=== PATIENT | male | born 1950 | race Caucasian/White ===

== ENCOUNTER 2021-01-01 16:13 | Emergency (ER) | payer OTHER, SELFPAY ==
--- NOTE | ~2021-01-01 | XR_ITS ---
EXAMINATION: XR chest 2V EXAM DATE: 01/01/2021 16:50 INDICATION: Chest pain. COPD. TECHNIQUE: Frontal and lateral projections of the chest obtained and reviewed. Comparison is made to prior examination from 02/20/2019. FINDINGS: No confluent consolidation, pneumothorax or pleural effusion suspected. Cardiomediastinal s ilhouette is normal. Thoracolumbar Dunbar rods. Severe upper thoracic dextroscoliosis, moderate l ower thoracic levoscoliosis. There is mid thoracic kyphosis. Patient has diffuse idiopathic skeletal hyperostosis (DISH). Chronic hyperinflation. IMPRESSION: 1. No acute cardiopulmonary findings. Reviewed, dictated and finalized at location A. ER GROWER
--- NOTE | 2021-01-01 16:13 | ECG_ITS ---
Measurements Intervals [place] Rate: 73 P: 54 TX: 179 QRS: 24 QRSD: 86 T: 35 QT: 349 QTc: 385 Interpretive Statements SINUS RHYTHM LOW QRS VOLTAGE IN PRECORDIAL LEADS BASELINE ARTIFACT- I, II, III, AVR, AVL, AVF, V3-V5 BORDERLINE ECG Electronically Signed On 01-01-2021 16:22:39 SMALL ANIMAL CARETAKER by Edy Vogel D.O.
[2021-01-01 16:25] VITALS: BP 122/68; PULSE 73; RESP 16; TEMP 36.1; O2SAT 96
[2021-01-01 16:37] LABS: Basophils Absolute Auto 0.1 K/mm3 (0.0-0.1); Basophils Percent Auto 0.7 % (0.2-1.2); Eosinophils Absolute Auto 0.3 K/mm3 (0-0.3); Eosinophils Percent Auto 2.8 % (0-4.4); Hemoglobin 14.8 g/dL (14.0-18.0); Immature Granulocyte Absolute 0.03 K/mm3 (0.00-0.031); Immature Granulocyte Percent A 0.3 % (0-0.5); Lymphocytes Absolute Auto 2.13 K/mm3 (0.9-3.2); Lymphocytes Percent Auto 22.3 % (18.3-44.2); Mean Corpuscular HGB Conc 32.2 g/dl (32-36); Mean Corpuscular Hemoglobin 31.2 pg (26-34); Mean Corpuscular Volume 96.8 fl (80-100); Mean Platelet Volume 10.3 fl (7.4-10.4); Monocytes Absolute Auto 0.7 K/mm3 (0.1-0.6); Monocytes Percent Auto 7.6 % (2.6-8.5); Neutrophils Absolute Auto 6.3 K/mm3 (1.3-6.7); Neutrophils Percent Auto 66.3 % (45.5-73.1); Platelet Count Result 239 k/mm3 (150-375); Red Blood Count 4.75 M/mm3 (4.6-6.20); Red Cell Distribution Width 13.7 % (11.5-14.5); White Blood Count 9.6 K/mm3 (4.5-10.0)
[2021-01-01 16:50] LABS: Anion Gap 8 mmol/L (8-16); Blood Urea Nitrogen 13 mg/dL (9-20); Carbon Dioxide 25 mmol/L (22-30); Chloride 105 mmol/L (98-107); Estimated CRCL calculation 91 ml/min; Estimated Glomerular Filt Rate > 60; Glucose 111 mg/dL (65-110); Sodium 138 mmol/L (137-145)
[2021-01-01 17:02] LABS: Troponin I < 0.012 ng/mL (0.000-0.034)
[2021-01-01 17:24] VITALS: BP 127/74; PULSE 65; RESP 16; O2SAT 96
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
[2021-01-01] MEDS: ASPIRIN 81 MG CHEWABLE TABLET 324 MG PO (17:25)
[2021-01-01 18:14] LABS: Prothrombin Time 13.2 Seconds (11.1-14.7)
[2021-01-01 18:15] LABS: Partial Thromboplastin Time 29.3 SECONDS (22.3-36.8)
[2021-01-01 19:47] LABS: Troponin I < 0.012 ng/mL (0.000-0.034)
[2021-01-01 19:56] VITALS: BP 113/73; PULSE 64; RESP 14; O2SAT 97
[2021-01-01 20:52] VITALS: BP 123/71; PULSE 65; RESP 18; O2SAT 96
== END 2021-01-01 20:57 | disposition home or self-care (01) ==
PROVIDERS: Emergency Provider Emergency Medicine; PCP Family Medicine
DX: R07.89 Other chest pain (principal); J44.9 Chronic obstructive pulmonary disease, unspecified; I25.10 Atherosclerotic heart disease of native coronary artery without angina pectoris; I10 Essential (primary) hypertension; Z79.82 Long term (current) use of aspirin; Z87.891 Personal history of nicotine dependence
CPT/HCPCS: 36415; 71046; 80048; 84484; 85025; 85610; 85730; 93005; 99284; A9270

== ENCOUNTER 2021-03-30 11:30 | Observation (INO) | payer OTHER, SELFPAY ==
[2021-03-30] VITALS (7 sets, daily range): BP systolic 125–130; BP diastolic 69–71; PULSE 90–99; RESP 16–20; TEMP 36.3–37.1; O2SAT 94–100
--- NOTE | ~2021-03-30 | XR_ITS ---
EXAMINATION: XR chest 1V DATE: 03/30/2021 13:12 INDICATION: Cough. TECHNIQUE: A single frontal view of the chest was obtained. COMPARISON: Chest single view 01/01/2021, thoracic spine CT 03/30/2021 FINDINGS: There are airspace opacities in left lower lobe, consistent with pneumonia. There is mild a telectasis at right lung base. No pleural effusion or pneumothorax. The heart size is normal. There a re spine fixation rods. IMPRESSION: 1. Left lower lobe pneumonia. Reviewed, dictated and finalized at location E. E SCIENTIST
--- NOTE | ~2021-03-30 | CT_ITS ---
EXAMINATION: CT thoracic lumbar wo con DATE: 03/30/2021 13:07 INDICATION: Back pain. TECHNIQUE: Computed tomography (CT) of the thoracic and lumbar spine was performed without intravenou s contrast. Automated exposure control and iterative reconstruction technique were employed. The dose -length product was 1986.60 mGy-cm. COMPARISON: None FINDINGS: CT THORACIC SPINE: There is mild atelectasis in right lung. There are airspace and groundglass opacit ies in left lung lower lobe with volume loss. No pleural effusion. There is 78 degrees dextroscoliosi s of thoracic spine. There is kyphosis of thoracic spine. There is mild chronic anterior wedging of T 5-T9 vertebral bodies. There is severe cervical spondylosis. There is mildly decreased disc height at T2-T3 and moderately decreased disc height from T3-T4 through T7-T8. There is severely decreased dis c height at T8-T9. There are bridging endplate osteophytes from T5 to L4. There is ankylosis of the f acet joints from T5-T6 to the lumbar spine. There are fixation rods with laminar hooks between T8 and S1. There is multilevel level mild neural foraminal stenosis. CT LUMBAR SPINE: There is 4 degrees levoscoliosis of thoracic lumbar spine. Vertebral body heights ar e normal. S1 is a transitional segment. Right anterior and posterior fusion from the thoracic spine L 4 with bridging endplate osteophytes, ankylosis of the facet joints, and fusion of the spinous proces ses. There is moderately decreased disc height at L4-L5. There is severely decreased disc height at L 5-S1. There is ankylosis of the facet joints at L5-S1. The following disc levels are specifically dis cussed: L4-L5: The disc is bulging. There is severe bilateral facet joint osteoarthritis. There is mild bilat eral neural foraminal stenosis. There is mild central canal stenosis. L5-S1: The disc does not extend beyond the endplate margin. There is mild bilateral facet joint hyper trophy. There is mild left neural foraminal stenosis. There is no central canal stenosis. IMPRESSION: 1. No fracture. 2. Thoracic dextroscoliosis and kyphosis and thoracolumbar levoscoliosis. 3. Anteroposterior fusion from T5 to L4 and posterior fusion at L5-S1. 4. Moderate spondylosis at L4-L5. 5. Airspace and groundglass opacities in left lung lower lobe with volume loss, likely a combination of atelectasis and pneumonia. Reviewed, dictated and finalized at location E. ONAL EDUCATION COORDINATOR
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
[2021-03-30] MEDS: traMADol HCL (*CRX) 50 MG TABLET PO (12:47)
[2021-03-30 12:50] LABS: Basophils Percent Auto 0.3 % (0.2-1.2); Eosinophils Absolute Auto 0.2 K/mm3 (0-0.3); Eosinophils Percent Auto 1.3 % (0-4.4); Hematocrit 44.5 % (42.0-52.0); Hemoglobin 14.2 g/dL (14.0-18.0); Immature Granulocyte Absolute 0.09 K/mm3 (0.00-0.031); Immature Granulocyte Percent A 0.7 % (0-0.5); Lymphocytes Absolute Auto 1.49 K/mm3 (0.9-3.2); Lymphocytes Percent Auto 11.4 % (18.3-44.2); Mean Corpuscular HGB Conc 31.9 g/dl (32-36); Mean Corpuscular Hemoglobin 30.5 pg (26-34); Mean Corpuscular Volume 95.5 fl (80-100); Mean Platelet Volume 9.8 fl (7.4-10.4); Monocytes Percent Auto 7.4 % (2.6-8.5); Neutrophils Absolute Auto 10.3 K/mm3 (1.3-6.7); Neutrophils Percent Auto 78.9 % (45.5-73.1); Platelet Count Result 280 k/mm3 (150-375); Red Blood Count 4.66 M/mm3 (4.6-6.20); Red Cell Distribution Width 13.2 % (11.5-14.5)
[2021-03-30 13:03] LABS: Alanine Aminotransferase 24 U/L (4-50); Alkaline Phosphatase 77 U/L (38-126); Anion Gap 6 mmol/L (8-16); Aspartate Amino Transferase 31 U/L (17-59); Bilirubin,Total 0.7 mg/dL (0.2-1.3); Blood Urea Nitrogen 11 mg/dL (9-20); Calcium 8.7 mg/dL (8.4-10.2); Carbon Dioxide 25 mmol/L (22-30); Chloride 105 mmol/L (98-107); Estimated CRCL calculation 90 ml/min; Estimated Glomerular Filt Rate > 60; Glucose 113 mg/dL (65-110); Potassium 4.2 mmol/L (3.4-5.0); Sodium 136 mmol/L (137-145)
[2021-03-30 14:10] LABS: Add Urine Microscopic? NO; Appearance Urine Clear (Clear); Bilirubin Urine Negative (Negative); Blood Urine Negative (Negative); Color Urine Yellow (Yellow); Glucose Urine UA Negative (Negative); Ketones Urine Negative (Negative); Leukocyte Esterase Ur Negative LEU/UL (Negative); Nitrate Urine Negative (Negative); Protein Urine Negative (Negative); Specific Grav Ur 1.021 (1.001-1.035); Urobilinogen Urine Negative mg/dL (<2.0)
[2021-03-30 15:38] LABS: SARS-CoV-2 RNA PCR Positive
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
[2021-03-30] MEDS: ACETAMINOPHEN 500 MG TABLET 1000 MG PO (18:26)
--- NOTE | 2021-03-30 19:50 | ADMGEN ---
This patient, Dov Marcial, was admitted to 3 [facility] Surg Room 310-01. Patient/family oriented to hospital policies and general routines including ID bracelet, bed and alarms, visiting hours, pain management, procedures, bathroom and other care routines, personal items, smoking policy, room service/diet, and visiting hours. Information on how to activate the Rapid Response Team has been discussed. Patient/Family are encouraged to report perceived risks to care and to ask questions if they do not understand what they are told or what they should do.
[2021-03-30] MEDS: ALBUTEROL SULFATE NEB 2.5 MG/0.5 ML INH INHALATION (21:38)
[2021-03-30] MEDS: IPRATROPIUM BR 0.02% INH SOLN 0.5 MG/2.5 ML VIAL INHALATION (21:38)
[2021-03-30] MEDS: guaiFENesin 12 HR 600 MG TABCR PO (23:40)
[2021-03-30] MEDS: METOPROLOL TARTRATE 50 MG TAB PO (23:41)
[2021-03-30] MEDS: LORazepam (*CRX) 1 MG TABLET PO (23:41)
[2021-03-31] VITALS (10 sets, daily range): BP systolic 109–143; BP diastolic 62–81; PULSE 72–101; RESP 16–18; TEMP 36.2–36.9; O2SAT 92–98
[2021-03-31 06:26] LABS: Hematocrit 41.7 % (42.0-52.0); Hemoglobin 13.9 g/dL (14.0-18.0); Mean Corpuscular HGB Conc 33.3 g/dl (32-36); Mean Corpuscular Volume 93.1 fl (80-100); Mean Platelet Volume 9.6 fl (7.4-10.4); Platelet Count Result 285 k/mm3 (150-375); Red Blood Count 4.48 M/mm3 (4.6-6.20); Red Cell Distribution Width 12.9 % (11.5-14.5); White Blood Count 10.8 K/mm3 (4.5-10.0)
[2021-03-31 06:45] LABS: Anion Gap 7 mmol/L (8-16); Blood Urea Nitrogen 9 mg/dL (9-20); CRP 5.8 mg/dL (<1.0); Calcium 8.6 mg/dL (8.4-10.2); Carbon Dioxide 24 mmol/L (22-30); Chloride 105 mmol/L (98-107); Estimated CRCL calculation 90 ml/min; Estimated Glomerular Filt Rate > 60; Glucose 86 mg/dL (65-110); Lactate Dehydrogenase 319 U/L (313-618); Magnesium 2.1 mg/dL (1.6-2.3); Sodium 136 mmol/L (137-145)
[2021-03-31] MEDS: ASPIRIN 81 MG ENTERIC TABLET PO (07:54)
[2021-03-31] MEDS: METOPROLOL TARTRATE 50 MG TAB PO ×2 (07:54→20:10)
[2021-03-31] MEDS: guaiFENesin 12 HR 600 MG TABCR PO ×2 (07:54→20:10)
[2021-03-31] MEDS: ATORVASTATIN 40 MG TABLET PO (07:54)
[2021-03-31] MEDS: ENOXAPARIN 40 MG/0.4 ML SYRINGE SUB-Q (07:54)
[2021-03-31 07:56] LABS: Procalcitonin 0.1 ng/mL
[2021-03-31] MEDS: FLUTICASONE PROP 110 MCG INHALER 12 GM (*SP) 2 PUFF INHALATION (08:24)
--- NOTE | 2021-03-31 10:34 | PM.IMPN ---
Progress Note: A&P Assessment and Plan (1) Left lower lobe pneumonia: Qualifiers: Pneumonia type: due to unspecified organism Qualified Code(s): J18.9 - Pneumonia, unspecified organism Code(s): J18.9 - Pneumonia, unspecified organism Status: Acute Assessment and Plan: Though positive for COVID this pneumonia seems more suspicious for bacterial pneumonia and given elevated white blood cell count will Continue Levaquin. (2) Chronic obstructive pulmonary disease: Qualifiers: COPD type: COPD with acute lower respiratory infection Qualified Code(s): J44.0 - Chronic obstructive pulmonary disease with (acute) lower respiratory infection Code(s): J44.9 - Chronic obstructive pulmonary disease, unspecified Status: Acute Assessment and Plan: Given his rhonchi and pneumonia with increased dyspnea he may benefit from steroids 2/5 added dexamethasone 6mg daily and Anora Ellipta Rescue inhaler and nebulizers p.r.n. (3) COVID-19: Code(s): U07.1 - COVID-19 Status: Acute Assessment and Plan: Patient received the COVID vaccination and booster. Positive for SARS-CoV-2 by PCR 2/. He has no oxygen requirement thus is not a candidate for remdesivir or dexamethasone. (4) Right-sided back pain: Qualifiers: Back pain location: back pain in unspecified location Chronicity: chronic Qualified Code(s): M54.9 - Dorsalgia, unspecified; G89.29 - Other chronic pain Code(s): M54.9 - Dorsalgia, unspecified Status: Acute Assessment and Plan: Reproducible pain on examination, likely musculoskeletal in etiology. Acetaminophen and heating pad available as needed. Encourage early mobilization and activity. (5) Hypertension: Qualifiers: Hypertension type: unspecified Qualified Code(s): I10 - Essential (primary) hypertension Code(s): I10 - Essential (primary) hypertension Status: Acute Assessment and Plan: Blood pressures reviewed with adequate control 2 Subjective Date/time seen: 03/31/21 10:34 Interval history: Admitted for COVID-19 and LLL pneumonia. 2/5 visit. Feeling better. Short of breath with exertion only. Taste and smell intact. Had mild diarrhea. Appetite remains good. Denied chest pain or abdominal pain. Denied dysuria. Denied abnormal bleeding. Review of Systems Review of Systems: All systems reviewed & are unremarkable except as noted in HPI and below Exam Narrative: HEENT: PERRL, sclerae nonicteric, pharyngeal mucosa pink and intact NECK: No JVD CHEST: Mildly tachypneic. Diffuse inspiratory and expiratory rhonchi. Few LLL crackles. HEART: NL S1/S2, regular, no murmur ABDOMEN: BS+, soft, nontender, no mass, no bruits EXTREMITIES: No cyanosis, edema, or clubbing NEUROLOGIC: CN intact and symmetric to inspection. MUSCULOSKELETAL: Tone and strength symmetric. PSYCH: Alert. Oriented to person, place, and time. Objective Data Vital Signs Vital Signs: Vital Signs - 24 hr 03/30/21 11:32 03/30/21 15:33 03/30/21 15:45 Temperature 97.3 F L Pulse Rate 90 Respiratory Rate 18 Blood Pressure 130/69 Pulse Oximetry 100 97 97 03/30/21 16:54 03/30/21 20:00 03/30/21 21:40 Temperature 98.8 F Pulse Rate 99 99 98 Respiratory Rate 16 20 Blood Pressure 125/71 Pulse Oximetry 95 94 03/30/21 23:41 03/31/21 00:00 03/31/21 04:00 Temperature 98.3 F 98.3 F Pulse Rate 90 100 88 Respiratory Rate 18 16 Blood Pressure 128/81 112/69 Pulse Oximetry 95 95 03/31/21 07:54 03/31/21 08:00 03/31/21 08:28 Temperature 97.9 F Pulse Rate 80 95 72 Respiratory Rate 16 18 Blood Pressure 143/73 H Pulse Oximetry 98 95 Intake/Output Intake/Output: Intake & Output 03/28/21 03/29/21 03/30/21 03/31/21 23:59 23:59 23:59 23:59 Intake Total 150 940 Balance 150 940 Meds/Results Medications: Active Medications Generic Name Dose Route Start
[2021-03-31] MEDS: DEXAMETHASONE 2 MG TABLET 6 MG PO (17:03)
[2021-03-31] MEDS: LORazepam (*CRX) 1 MG TABLET PO (20:10)
[2021-04-01] VITALS: BP 118/56; PULSE 74; RESP 18; TEMP 37.1; O2SAT 100
[2021-04-01 04:00] VITALS: BP 113/64; PULSE 92; RESP 18; TEMP 35.9; O2SAT 93
[2021-04-01] MEDS: DEXAMETHASONE 2 MG TABLET 6 MG PO (07:48)
[2021-04-01 07:59] VITALS: PULSE 90
[2021-04-01] MEDS: ASPIRIN 81 MG ENTERIC TABLET PO (07:59)
[2021-04-01] MEDS: METOPROLOL TARTRATE 50 MG TAB PO (07:59)
[2021-04-01 08:00] VITALS: BP 120/80; PULSE 112; RESP 14; TEMP 36.2; O2SAT 96; O2SAT 97
[2021-04-01] MEDS: ATORVASTATIN 40 MG TABLET PO (08:00)
[2021-04-01] MEDS: ENOXAPARIN 40 MG/0.4 ML SYRINGE SUB-Q (08:00)
[2021-04-01] MEDS: guaiFENesin 12 HR 600 MG TABCR PO (08:00)
[2021-04-01] MEDS: UMECLIDINIUM/VILANTEROL 62.5-25 MCG ELLIPTA 1 PUFF INHALATION (08:14)
[2021-04-01] MEDS: FLUTICASONE PROP 110 MCG INHALER 12 GM (*SP) 2 PUFF INHALATION (08:15)
[2021-04-01 08:16] VITALS: PULSE 112; O2SAT 96
--- NOTE | 2021-04-01 09:57 | PM.IMPN ---
Subjective Date/time seen: 04/01/21 09:57 Objective Data Vital Signs Vital Signs: Vital Signs - 24 hr 03/31/21 12:00 03/31/21 15:51 03/31/21 20:00 Temperature 98.2 F 98.5 F 97.1 F L Pulse Rate 77 91 101 H Respiratory Rate 16 16 18 Blood Pressure 113/65 109/62 116/66 Pulse Oximetry 93 93 92 03/31/21 20:10 03/31/21 23:32 04/01/21 00:00 Temperature 98.7 F Pulse Rate 78 78 74 Respiratory Rate 18 Blood Pressure 118/56 L Pulse Oximetry 93 100 04/01/21 04:00 04/01/21 07:59 04/01/21 08:00 Temperature 96.6 F L 97.2 F L Pulse Rate 92 90 112 H Respiratory Rate 18 14 Blood Pressure 113/64 120/80 Pulse Oximetry 93 97 04/01/21 08:16 Temperature Pulse Rate 112 H Respiratory Rate Blood Pressure Pulse Oximetry 96 Intake/Output Intake/Output: Intake & Output 03/29/21 03/30/21 03/31/21 04/01/21 23:59 23:59 23:59 23:59 Intake Total 150 2070 780 Output Total 500 Balance 150 2070 280 Meds/Results Medications: Active Medications Generic Name Dose Route Start Last Admin Trade Name Freq PRN Reason Stop Dose Admin Acetaminophen 650 mg 03/30/21 20:23 Acetaminophen 325 Mg Tablet PO Q6H PRN Mild Pain (1-3) or Fever Albuterol 2.5 mg 03/30/21 21:27 03/30/21 21:38 Albuterol Sulfate Neb 2.5 Mg/0.5 Ml Inh INHALATION 04/29/21 21:26 2.5 mg Q4-6H PRN Administration Shortness Of Breath Aspirin 81 mg 03/31/21 09:00 04/01/21 07:59 Aspirin 81 Mg Enteric Tablet PO 81 mg DAILY JIMENEZ Administration Atorvastatin Calcium 40 mg 03/31/21 09:00 04/01/21 08:00 Atorvastatin 40 Mg Tablet PO 40 mg DAILY JIMENEZ Administration Dexamethasone 6 mg 03/31/21 16:20 04/01/21 07:48 Dexamethasone 2 Mg Tablet PO 04/09/21 08:01 6 mg DAILY@0800 JIMENEZ Administration Docusate Sodium 100 mg 03/30/21 21:15 Docusate Sodium 100 Mg Capsule PO DAILY PRN Constipation Enoxaparin Sodium 40 mg 03/31/21 09:00 04/01/21 08:00 Enoxaparin 40 Mg/0.4 Ml Syringe SUB-Q 40 mg DAILY JIMENEZ Administration Fluticasone Propionate 2 puff 03/31/21 08:00 04/01/21 08:16 Fluticasone Prop 110 Mcg Inhaler 12 Gm (*Sp) INHALATION Not Given Q12HRT [facility] Guaifenesin 600 mg 03/30/21 21:00 04/01/21 08:00 Guaifenesin 12 Hr 600 Mg Tabcr PO 600 mg Q12HR JIMENEZ Administration Levofloxacin/Dextrose 750 mg in 150 mls @ 100 mls/hr 03/31/21 15:00 03/31/21 16:06 Levaquin 750 Mg/D5w 150 Ml IVPB Infused Q24H JIMENEZ Infusion Ipratropium [place] 0.5 mg 03/30/21 21:15 03/30/21 21:38 Ipratropium Br 0.02% Inh Soln 0.5 Mg/2.5 Ml Vial INHALATION 0.5 mg Q4-6H PRN Administration Shortness Of Breath Lorazepam 1 mg 03/30/21 21:00 03/31/21 20:10 Lorazepam (*Crx) 1 Mg Tablet PO 1 mg HS JIMENEZ Administration Metoprolol Tartrate 50 mg 03/30/21 21:25 04/01/21 07:59 Metoprolol Tartrate 50 Mg Tab PO 50 mg Q12HR JIMENEZ Administration Umeclidinium/Vilanterol 1 puff 04/01/21 08:00 04/01/21 08:14 Umeclidinium/Vilanterol 62.5-25 Mcg Ellipta INHALATION 1 puff DAILYRT JIMENEZ Administration Radiology Results: ITS Impressions Thoracic/Lumbar Spine CT 03/30/21 13:23 IMPRESSION: 1. No fracture. 2. Thoracic dextroscoliosis and kyphosis and thoracolumbar levoscoliosis. 3. Anteroposterior fusion from T5 to L4 and posterior fusion at L5-S1. 4. Moderate spondylosis at L4-L5. 5. Airspace and groundglass opacities in left lung lower lobe with volume loss, likely a combination of atelectasis and pneumonia. Chest X-Ray 03/30/21 13:39 IMPRESSION: 1. Left lower lobe pneumonia. Quality VTE Prophylaxis VTE prophylaxis: pharmacologic ordered
--- NOTE | 2021-04-01 10:19 | PM.DS ---
DS: Admitting Diagnosis Discharge Date Patient seen examined April 01, 2021 Admitting Diagnosis Left lower lobe pneumonia and COVID-19 DS: Discharge Diagnosis Discharge Diagnosis (1) Left lower lobe pneumonia: Qualifiers: Pneumonia type: due to unspecified organism Qualified Code(s): J18.9 - Pneumonia, unspecified organism Code(s): J18.9 - Pneumonia, unspecified organism Status: Acute Assessment and Plan: Though positive for COVID this pneumonia seems more suspicious for bacterial pneumonia and given elevated white blood cell count will Continue Levaquin. (2) Chronic obstructive pulmonary disease: Qualifiers: COPD type: COPD with acute lower respiratory infection Qualified Code(s): J44.0 - Chronic obstructive pulmonary disease with (acute) lower respiratory infection Code(s): J44.9 - Chronic obstructive pulmonary disease, unspecified Status: Acute Assessment and Plan: Given his rhonchi and pneumonia with increased dyspnea he may benefit from steroids 2/5 added dexamethasone 6mg daily and Anora Ellipta Rescue inhaler and nebulizers p.r.n. (3) COVID-19: Code(s): U07.1 - COVID-19 Status: Acute Assessment and Plan: Patient received the COVID vaccination and booster. Positive for SARS-CoV-2 by PCR 2. He has no oxygen requirement thus is not a candidate for remdesivir or dexamethasone. (4) Right-sided back pain: Qualifiers: Back pain location: back pain in unspecified location Chronicity: chronic Qualified Code(s): M54.9 - Dorsalgia, unspecified; G89.29 - Other chronic pain Code(s): M54.9 - Dorsalgia, unspecified Status: Acute Assessment and Plan: Reproducible pain on examination, likely musculoskeletal in etiology. Acetaminophen and heating pad available as needed. Encourage early mobilization and activity. (5) Hypertension: Qualifiers: Hypertension type: unspecified Qualified Code(s): I10 - Essential (primary) hypertension Code(s): I10 - Essential (primary) hypertension Status: Acute Assessment and Plan: Blood pressures reviewed with adequate control 2/ DS: Summary Hospital Course Reason for hospitalization: Dyspnea Hospital Course: Patient was admitted with dyspnea and found to be positive for COVID-19 however he had a left lower lobe pneumonia more consistent with bacterial pneumonia. He had no oxygen requirements. He was treated with levothyroxine 750 mg IV daily. He improved dramatically after the addition of dexamethasone 6 mg daily more for wheezing and bronchospasm then for COVID-19. By day of discharge his lungs were clear he was up and about without difficulty. Status at Discharge Functional status at discharge: independent ambulation Overall status at discharge: patient is progressing back to baseline Time Spent with Patient Time attestation: Total time spent providing and/or coordinating discharge services: Time spent: Greater than 30 minutes Exam Narrative: HEENT: PERRL, sclerae nonicteric, pharyngeal mucosa pink and intact NECK: No JVD CHEST: NL effort. CTA. HEART: NL S1/S2, regular, no murmur ABDOMEN: BS+, soft, nontender, no mass, no bruits EXTREMITIES: No cyanosis, edema, or clubbing NEUROLOGIC: CN intact and symmetric to inspection. MUSCULOSKELETAL: Tone and strength symmetric. PSYCH: Alert. Oriented to person, place, and time. DS: Data Data Completed and Pending Labs on day of discharge: Preliminary micro results at discharge 03/30/21 15:05 Blood Culture - Preliminary Blood 03/30/21 15:05 Blood Culture - Preliminary Blood Discharge Plan Discharge Discharging Clinician: Raza Garcia Patient Disposition: Home, Self-Care Activity: as tolerated Diet: regular Discharge Instructions: See primary care provider in one week. Patient Instructions: Antibiotic Form, COVID-19 (Coronavirus Disease 201
== END 2021-04-01 11:20 | disposition home or self-care (01) ==
LOC: ANHED 15:11 → ANH3MEDSUR 04-01 10:26
PROVIDERS: Physician Assistant; Admitting Provider Internal Medicine; Emergency Provider Emergency Medicine; PCP Obstetrics & Gynecology; Visit Provider Internal Medicine
DX: U07.1 COVID-19 (principal); J18.9 Pneumonia, unspecified organism; M54.50 Low back pain, unspecified; J44.0 Chronic obstructive pulmonary disease with (acute) lower respiratory infection; J44.9 Chronic obstructive pulmonary disease, unspecified; E78.5 Hyperlipidemia, unspecified; G14 Postpolio syndrome; H26.9 Unspecified cataract; H35.30 Unspecified macular degeneration; I25.10 Atherosclerotic heart disease of native coronary artery without angina pectoris; I10 Essential (primary) hypertension; L40.9 Psoriasis, unspecified; M41.9 Scoliosis, unspecified; Z95.5 Presence of coronary angioplasty implant and graft; Z87.891 Personal history of nicotine dependence; Z79.82 Long term (current) use of aspirin; Z88.0 Allergy status to penicillin; Z87.442 Personal history of urinary calculi; Z79.899 Other long term (current) drug therapy
CPT/HCPCS: 36415; 71045; 72128; 72131; 80048; 80053; 81003; 82728; 83615; 83735; 84145; 85025; 85027; 86140; 87040; 94640; 96365; 96366; 96372; 99285; A9270; C9803; G0378; J1650; J1956; J8540; U0003; U0005

== ENCOUNTER 2021-05-02 00:18 | Day surgery (SDC) | payer OTHER, SELFPAY ==
[2021-04-20 13:10] VITALS: BMI 29.8
[2021-05-02] MEDS: LACTATED RINGERS 1,000 ML 150 ML IV CONT (07:04)
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
[2021-05-02 08:13] VITALS: BP 96/63; PULSE 102; RESP 23; O2SAT 95
[2021-05-02 08:23] VITALS: BP 117/77; PULSE 95; RESP 18; O2SAT 98
[2021-05-02 08:33] VITALS: BP 112/60; PULSE 101; RESP 24; O2SAT 98
== END 2021-05-02 08:49 | disposition home or self-care (01) ==
PROVIDERS: Visit Provider Internal Medicine Gastroenterology
PROC: 0DJD8ZZ Inspection of Lower Intestinal Tract, Via Natural or Artificial Opening Endoscopic (ICD-10-PCS; CPT 45378; principal; 2021-05-02 08:00)
DX: Z12.11 Encounter for screening for malignant neoplasm of colon (principal); D12.3 Benign neoplasm of transverse colon; K57.30 Diverticulosis of large intestine without perforation or abscess without bleeding; K64.8 Other hemorrhoids; I25.10 Atherosclerotic heart disease of native coronary artery without angina pectoris; J44.9 Chronic obstructive pulmonary disease, unspecified; I10 Essential (primary) hypertension; E78.5 Hyperlipidemia, unspecified; G14 Postpolio syndrome; L40.9 Psoriasis, unspecified; H26.9 Unspecified cataract; H35.30 Unspecified macular degeneration; Z95.5 Presence of coronary angioplasty implant and graft; Z87.891 Personal history of nicotine dependence; Z79.51 Long term (current) use of inhaled steroids; Z79.82 Long term (current) use of aspirin
CPT/HCPCS: 45385; 88305; J2704; J7120

== ENCOUNTER 2021-05-09 07:44 | Outpatient (CLI) | payer OTHER, SELFPAY ==
--- NOTE | ~2021-05-09 | XR_ITS ---
XR chest 2V 05/09/2021 08:11 Indication: Emphysema. COPD. Procedure: PA and lateral views of the chest Comparison: Comparison to multiple prior studies sequentially, with oldest reviewed study dated 10/2018. Findings: There are Dunbar rods overlying the lower thoracic and upper lumbar spine. There is acc entuated thoracic kyphosis with scoliosis. There is left basilar atelectasis/scarring, unchanged. Sta ble cardiomediastinal silhouette. No acute focal pneumonia, edema, pleural effusion or pneumothorax. Impression: 1: No acute cardiopulmonary disease. Reviewed, dictated and finalized at location B. Impression: 1: No acute cardiopulmonary disease.
== END 2021-05-09 07:45 | disposition home or self-care (01) ==
LOC: ANHIMG 07:47
DX: J44.9 Chronic obstructive pulmonary disease, unspecified (principal); Z86.16 Personal history of COVID-19
CPT/HCPCS: 71046

== ENCOUNTER 2021-07-12 13:26 | Outpatient (CLI) | payer OTHER, SELFPAY ==
--- NOTE | ~2021-07-12 | CT_ITS ---
EXAMINATION:CT lung screening DATE: 07/12/2021 14:41 INDICATION: Personal history of tobacco dependence. Smoker who quit 4 years ago with 40 pack year his tory. TECHNIQUE: Computed tomography (CT) of the chest was performed without intravenous contrast. Automate d exposure control and iterative reconstruction technique were employed. The dose-length product (DLP ) was 216.28 mGy-cm. COMPARISON: Chest CT 12/02/2018 FINDINGS: There is mild emphysema. There is mild atelectasis bilaterally. Calcified pulmonary nodules are consistent with old granulomatous disease. There is moderate atelectasis in right middle lobe an d right lower lobe. There is mild bronchiectasis in right middle lobe. There are a few chronic nodule s in right lung measuring up to 4 mm. No pleural effusion. The heart size is normal. There are whitlock ry artery calcifications. There is a small pericardial effusion. There is dextroscoliosis of upper th oracic spine and levoscoliosis of lower thoracic spine. There is kyphosis of thoracic spine. There ar e rods in the posterior spine. IMPRESSION: 1. Lung-RADS category 2: Benign appearance or behavior. Continue annual screening with noncontrast lo w-dose chest CT in 12 months. Reviewed, dictated and finalized at location A. IMPRESSION: 1. Lung-RADS category 2: Benign appearance or behavior. Continue annual screeni ng with noncontrast low-dose chest CT in 12 months.
--- NOTE | 2021-07-13 11:54 | WPDPFTINT ---
PFT Procedure Performed PFT Procedure Performed Spirometry with Pre/Post Bronchodilator Plethysmography (Lung Vol) Diffusing Cap (DLCO) Flow Vol Loop PFT Interpretation Lung volumes were measured with the body plethysmography method. Lung volumes are unremarkable. Spirometry showed diminished expiratory flow rates and a diminished FEV1 to FVC ratio of 64%, indicative of obstructive airway disease. Following administration of a bronchodilator there was no significant increased expiratory flow rates. Lung diffusion capacity is mildly reduced at 71% predicted. The flow volume loop is consistent with mild obstructive airway disease. Impression: Mild obstructive airway disease with no response to bronchodilators on this testing. Mild reduction in lung diffusion capacity.
--- NOTE | 2021-07-13 11:57 | P.PCNSIX_ITS ---
Six Minute Walk Procedure Procedure Performed Pulmonary Stress Test (6 min walk) Six Minute Walk This 6 minute walk test was carried out with the patient breathing ambient air. Pre walk at rest, the oxyhemoglobin saturation was 93%. The patient walked over 152 m with no stops during the walk. During the walk, the ox yhemoglobin saturation remained near 90%. The perceived dyspnea at rest was 0 on the Yobany scale and increased to 4 at the end of the test. Of note, patient used cane with walk. Impression: No evidence of oxyhemoglobin desaturation on this testing.
== END 2021-07-12 13:27 | disposition home or self-care (01) ==
PROVIDERS: Visit Provider Internal Medicine Pulmonary Disease
DX: Z12.2 Encounter for screening for malignant neoplasm of respiratory organs (principal); Z87.891 Personal history of nicotine dependence; R94.2 Abnormal results of pulmonary function studies
CPT/HCPCS: 36415; 71271; 94060; 94618; 94726; 94729

== ENCOUNTER 2021-08-07 07:19 | Outpatient (CLI) | payer OTHER, SELFPAY ==
--- NOTE | ~2021-08-07 | XR_ITS ---
XR chest 2V DATE: 08/07/2021 07:37 INDICATION: Emphysema. Localized swelling bilateral lower extremities TECHNIQUE: PA and lateral views COMPARISON: 07/12/2021 CT lung screening FINDINGS: Bilateral thoracolumbar spinal rods are noted. There is prominent thoracic and lumbar scoli osis. Bilateral glenohumeral osteoarthritis. There is osteopenia. There is minimal discoid atelectasis or scarring at the lung bases. The lungs appear mildly hyperinfl ated but clear of consolidation. No pleural effusion or pulmonary vascular congestion or pneumothorax. Heart size appears within normal range. There is aortic arch calcification. IMPRESSION: Moderate bilateral hyperinflation suggesting COPD Normal heart size. Aortic calcification Prominent thoracic and lumbar scoliosis; bilateral thoracolumbar spinal rods Bilateral glenohumeral osteoarthritis Reviewed, dictated and finalized at location A.
== END 2021-08-07 07:20 | disposition home or self-care (01) ==
DX: R91.8 Other nonspecific abnormal finding of lung field (principal); M19.011 Primary osteoarthritis, right shoulder; M19.012 Primary osteoarthritis, left shoulder
CPT/HCPCS: 71046

== ENCOUNTER 2021-08-16 13:24 | Outpatient (CLI) | payer OTHER, SELFPAY ==
--- NOTE | ~2021-08-16 | US_ITS ---
EXAMINATION: US venous doppler [facility] DATE: 08/16/2021 14:14 INDICATION: Bilateral lower limb swelling TECHNIQUE: Grayscale ultrasound images without and with compression and Doppler ultrasound images of the bilateral lower extremity veins were obtained. COMPARISON: None. FINDINGS: The visualized portions of right common femoral vein, profunda (deep) femoral vein, femoral vein, pop liteal vein, posterior tibial veins, peroneal veins, gastrocnemius vein and greater saphenous vein ou tflow are patent. The visualized portions of left common femoral vein, profunda femoral vein, femoral vein, popliteal v ein, posterior tibial veins, peroneal veins, gastrocnemius vein and greater saphenous vein outflow ar e patent. IMPRESSION: 1. No deep venous thrombosis in either lower limb. Reviewed, dictated and finalized at location B.
== END 2021-08-16 13:25 | disposition home or self-care (01) ==
LOC: ANHIMG 13:26
DX: M79.89 Other specified soft tissue disorders (principal)
CPT/HCPCS: 93970

== ENCOUNTER 2021-08-17 10:48 | Outpatient (CLI) | payer OTHER, SELFPAY | END 2021-08-17 10:49 | disposition home or self-care (01) | LOC: ANHAUDIO 10:49 | PROVIDERS: Visit Provider Otolaryngology | DX: H90.3 Sensorineural hearing loss, bilateral (principal) | CPT/HCPCS: 92557; 92567 ==

== ENCOUNTER 2021-10-09 04:45 | Emergency (ER) | payer OTHER, SELFPAY ==
[2021-10-09] VITALS (7 sets, daily range): BP systolic 102–120; BP diastolic 58–67; PULSE 56–67; RESP 13–25; TEMP 36.8; O2SAT 95–99
--- NOTE | ~2021-10-09 | CT_ITS ---
EXAMINATION: CT brain wo con DATE: 10/09/2021 05:58 INDICATION: Vertigo and acute onset dizziness which worsens with movement. TECHNIQUE: Computed tomography (CT) of the head was performed without intravenous contrast. Sagittal and coronal reconstructions were performed. The mA was adjusted according to patient size. Iterative reconstruction technique was employed. The dose-length product was 681.00 mGy-cm. COMPARISON: head CT dated 10/05/2018 FINDINGS: No acute intracranial hemorrhage, acute infarction or abnormal extra axial fluid collection. Symmetri c prominence of the sulci and subarachnoid spaces overlying the convexities consistent with mild age- appropriate diffuse cerebral volume loss. Ventricles are normal and symmetric. No mass/mass effect. Mucosal thickening in the bilateral maxillary sinuses with bubbly mucus in the right maxillary sinus suggesting acute sinusitis. Occlusion of the right ostiomeatal unit. Slight thickening of the maxilla ry sinus orosco suggesting chronic sinusitis. Postoperative change of bilateral antral window procedur e. Unchanged small mucous retention cyst in the left frontal sinus. The orbits and mastoid air cells are normal. IMPRESSION: 1. No acute intracranial process. 2. Chronic sinus disease with bubbly mucus in the right maxillary sinus suggesting acute sinusitis. Reviewed, dictated and finalized at location A. IMPRESSION: 1. No acute intracranial process. 2. Chronic sinus disease with bubbly mucus in the right maxillary sinus suggest ing acute sinusitis.
[2021-10-09 05:05] LABS: Basophils Absolute Auto 0.1 K/mm3 (0.0-0.1); Basophils Percent Auto 0.9 % (0.2-1.2); Eosinophils Absolute Auto 0.4 K/mm3 (0-0.3); Eosinophils Percent Auto 4.5 % (0-4.4); Hematocrit 43.1 % (42.0-52.0); Hemoglobin 13.7 g/dL (14.0-18.0); Immature Granulocyte Absolute 0.04 K/mm3 (0.00-0.031); Immature Granulocyte Percent A 0.5 % (0-0.5); Lymphocytes Absolute Auto 1.89 K/mm3 (0.9-3.2); Lymphocytes Percent Auto 24.4 % (18.3-44.2); Mean Corpuscular HGB Conc 31.8 g/dl (32-36); Mean Corpuscular Hemoglobin 30.1 pg (26-34); Mean Corpuscular Volume 94.7 fl (80-100); Mean Platelet Volume 10.6 fl (7.4-10.4); Monocytes Absolute Auto 0.7 K/mm3 (0.1-0.6); Monocytes Percent Auto 8.4 % (2.6-8.5); Neutrophils Absolute Auto 4.7 K/mm3 (1.3-6.7); Neutrophils Percent Auto 61.3 % (45.5-73.1); Platelet Count Result 204 k/mm3 (150-375); Red Blood Count 4.55 M/mm3 (4.6-6.20); Red Cell Distribution Width 13.2 % (11.5-14.5); White Blood Count 7.7 K/mm3 (4.5-10.0)
[2021-10-09] MEDS: diazePAM INJ (*CRX) 10 MG/2 ML SYRINGE 2.5 MG IV PUSH (05:08)
[2021-10-09] MEDS: MECLIZINE HCL 25 MG TABLET PO (05:10)
[2021-10-09 05:19] LABS: Alanine Aminotransferase 21 U/L (6-50); Albumin Level 3.6 g/dL (3.5-5.1); Alkaline Phosphatase 89 U/L (38-126); Anion Gap 7 mmol/L (8-16); Aspartate Amino Transferase 27 U/L (17-59); Bilirubin,Total 0.5 mg/dL (0.2-1.3); Blood Urea Nitrogen 10 mg/dL (9-20); Calcium 8.6 mg/dL (8.4-10.2); Carbon Dioxide 28 mmol/L (22-30); Chloride 102 mmol/L (98-107); Estimated CRCL calculation 121 ml/min; Estimated Glomerular Filt Rate > 60; Glucose 109 mg/dL (65-110); Potassium 3.8 mmol/L (3.4-5.0); Sodium 137 mmol/L (137-145)
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
== END 2021-10-09 07:12 | disposition home or self-care (01) ==
PROVIDERS: Emergency Provider Emergency Medicine
DX: R42 Dizziness and giddiness (principal); I25.10 Atherosclerotic heart disease of native coronary artery without angina pectoris; J44.9 Chronic obstructive pulmonary disease, unspecified; E78.5 Hyperlipidemia, unspecified; I10 Essential (primary) hypertension; H35.30 Unspecified macular degeneration; Z87.01 Personal history of pneumonia (recurrent); Z86.010 Personal history of colon polyps; Z95.5 Presence of coronary angioplasty implant and graft; Z87.442 Personal history of urinary calculi; Z87.891 Personal history of nicotine dependence; Z79.82 Long term (current) use of aspirin
CPT/HCPCS: 36415; 70450; 80053; 85025; 96374; 99284; A9270; J3360

== ENCOUNTER 2021-10-23 09:03 | Outpatient (CLI) | payer OTHER, SELFPAY ==
--- NOTE | 2021-10-23 11:00 | NEURO_ITS ---
Impression: # This is an abnormal study due to the presence of moderate right Carpal Tunnel Syndrome and mild right ulnar neuropathy at the elbow. # Needle/EMG exam revealed neurogenic changes in Pronator Teres and Brachioradialis which can be seen in C6 radiculopathy. # Clinical correlation recommended. Nerve Conduction Studies Anti Sensory Summary Table Stim Site NR Peak (ms) P-T Amp (?V) Site1 Site2 Delta-P (ms) Dist (cm) Maurice (m/s) Right Median Anti Sensory (2-3nd Digit) Wrist 9.5 21.0 Wrist 2-3nd Digit 9.5 14.0 15 Wrist 6.6 24.7 Wrist 2-3nd Digit 9.5 14.0 15 Right Radial Anti Sensory (Base 1st Digit) Wrist 3.1 24.9 Wrist Base 1st Digit 3.1 0.0 Right Ulnar Anti Sensory (5th Digit) Wrist 3.2 5.0 Wrist 5th Digit 3.2 14.0 44 Motor Summary Table Stim Site NR Onset (ms) O-P Amp (mV) Site1 Site2 Delta-0 (ms) Dist (cm) Maurice (m/s) Right Median Motor (Abd Poll Brev) Wrist 6.7 0.5 Elbow Wrist 6.3 25.0 40 Elbow 13.0 0.8 Right Ulnar Motor (Abd Dig Minimi) Wrist 3.0 4.7 A Elbow Wrist 7.2 31.0 43 A Elbow 10.2 3.3 B Elbow Wrist 3.9 22.0 56 B Elbow 6.9 3.0 F Wave Studies NR F-Lat (ms) L-R F-Lat (ms) Right Median (Mrkrs) (Abd Poll Brev) 31.35 Right Ulnar (Mrkrs) (Abd Dig Min) 30.97 EMG Side Muscle Nerve Root Ins Act Fibs Amp Dur Recrt Comment Right 1stDorInt Ulnar C8-T1 Nml Nml Nml Nml Nml Right Ext Indicis Radial (Post Int) C7-8 Nml Nml Nml Nml Nml Right Ext Digitorum Radial (Post Int) C7-8 Nml Nml Nml Nml Nml Right BrachioRad Radial C5-6 Nml Nml Nml Nml Reduced Right PronatorTeres Median C6-7 Nml Nml Nml Nml Reduced Right Abd Poll Brev Median C8-T1 Nml Nml Nml Nml Nml MTDD
--- NOTE | 2021-10-23 11:00 | NEURO_ITS ---
Original report below was signed by Dr. Ani Goodwin on October 23, 2021 at 15:08 and has been recreated for an addendum on October 24, 2021. Impression: # This is an abnormal study due to the presence of moderate right Carpal Tunnel Syndrome. # Needle/EMG exam revealed neurogenic changes in Pronator Teres and Brachioradialis which can be seen in C6 radiculopathy. MRI cervical spine can be obtained for further evaluation. # Clinical correlation recommended. Nerve Conduction Studies Anti Sensory Summary Table Stim Site NR Peak (ms) P-T Amp (?V) Site1 Site2 Delta-P (ms) Dist (cm) Maurice (m/s) Right Median Anti Sensory (2-3nd Digit) Wrist 9.5 21.0 Wrist 2-3nd Digit 9.5 14.0 15 Wrist 6.6 24.7 Wrist 2-3nd Digit 9.5 14.0 15 Right Radial Anti Sensory (Base 1st Digit) Wrist 3.1 24.9 Wrist Base 1st Digit 3.1 0.0 Right Ulnar Anti Sensory (5th Digit) Wrist 3.2 5.0 Wrist 5th Digit 3.2 14.0 44 Motor Summary Table Stim Site NR Onset (ms) O-P Amp (mV) Site1 Site2 Delta-0 (ms) Dist (cm) Maurice (m/s) Right Median Motor (Abd Poll Brev) Wrist 6.7 0.5 Elbow Wrist 6.3 25.0 40 Elbow 13.0 0.8 Right Ulnar Motor (Abd Dig Minimi) Wrist 3.0 4.7 A Elbow Wrist 7.2 31.0 43 A Elbow 10.2 3.3 B Elbow Wrist 3.9 22.0 56 B Elbow 6.9 3.0 F Wave Studies NR F-Lat (ms) L-R F-Lat (ms) Right Median (Mrkrs) (Abd Poll Brev) 31.35 Right Ulnar (Mrkrs) (Abd Dig Min) 30.97 EMG Side Muscle Nerve Root Ins Act Fibs Amp Dur Recrt Comment Right 1stDorInt Ulnar C8-T1 Nml Nml Nml Nml Nml Right Ext Indicis Radial (Post Int) C7-8 Nml Nml Nml Nml Nml Right Ext Digitorum Radial (Post Int) C7-8 Nml Nml Nml Nml Nml Right BrachioRad Radial C5-6 Nml Nml Nml Nml Reduced Right PronatorTeres Median C6-7 Nml Nml Nml Nml Reduced Right Abd Poll Brev Median C8-T1 Nml Nml Nml Nml Nml This dictation may have been done utilizing a voice recognition system. Attempts have been made to correct errors. However, there may be uncorrected grammatical, spelling, and recognition errors present. Dictated By: Ani Goodwin MD 10/23/21 1100 Transcribed Date/Time: 10/23/21 1139 Signed By: Ani Goodwin MD 10/23/21 1508 [facility]
== END 2021-10-23 09:04 | disposition home or self-care (01) ==
PROVIDERS: Visit Provider Orthopaedic Surgery
DX: G56.01 Carpal tunnel syndrome, right upper limb (principal); R94.131 Abnormal electromyogram [EMG]
CPT/HCPCS: 95886; 95909

== ENCOUNTER 2021-12-04 08:59 | Outpatient (CLI) | payer OTHER, SELFPAY ==
--- NOTE | 2021-12-04 | ECG_ITS ---
Measurements Intervals [place] Rate: 47 P: 47 MA: 169 QRS: 19 QRSD: 89 T: 28 QT: 392 QTc: 349 Interpretive Statements SINUS BRADYCARDIA COMPARED TO ECG 01/01/2021 16:18:11 SINUS BRADYCARDIA NOW PRESENT Electronically Signed On 12-05-2021 14:28:09 CDT by Gloria Rajan M.D.
[2021-12-04 09:51] LABS: Anion Gap 4 mmol/L (8-16); Blood Urea Nitrogen 14 mg/dL (9-20); Calcium 8.5 mg/dL (8.4-10.2); Carbon Dioxide 31 mmol/L (22-30); Chloride 101 mmol/L (98-107); Estimated Glomerular Filt Rate > 60; Glucose 80 mg/dL (65-110); Sodium 136 mmol/L (137-145)
== END 2021-12-04 09:00 | disposition home or self-care (01) ==
PROVIDERS: Visit Provider Orthopaedic Surgery
DX: Z01.818 Encounter for other preprocedural examination (principal); R94.31 Abnormal electrocardiogram [ECG] [EKG]
CPT/HCPCS: 36415; 80048; 93005

== ENCOUNTER 2022-03-08 08:58 | Emergency (ER) | payer OTHER, SELFPAY ==
[2022-03-08 09:01] VITALS: BP 98/57; PULSE 74; RESP 16; TEMP 36.4; O2SAT 99
[2022-03-08 09:31] LABS: INR 1.1; Prothrombin Time 13.7 Seconds (11.1-14.7)
[2022-03-08 09:32] LABS: Partial Thromboplastin Time 25.9 SECONDS (22.3-36.8)
[2022-03-08 09:38] LABS: Alanine Aminotransferase 24 U/L (6-50); Albumin Level 3.9 g/dL (3.5-5.1); Alkaline Phosphatase 107 U/L (38-126); Anion Gap 6 mmol/L (8-16); Aspartate Amino Transferase 31 U/L (17-59); Bilirubin,Total 0.5 mg/dL (0.2-1.3); Blood Urea Nitrogen 14 mg/dL (9-20); Calcium 8.2 mg/dL (8.4-10.2); Carbon Dioxide 28 mmol/L (22-30); Chloride 105 mmol/L (98-107); Estimated CRCL calculation 89 ml/min; Estimated Glomerular Filt Rate > 60; Glucose 146 mg/dL (65-110); Potassium 4.2 mmol/L (3.4-5.0); Sodium 139 mmol/L (137-145)
[2022-03-08 09:43] LABS: Basophils Absolute Auto 0.1 K/mm3 (0.0-0.1); Basophils Percent Auto 0.5 % (0.2-1.2); Eosinophils Absolute Auto 0.3 K/mm3 (0-0.3); Hematocrit 44.6 % (42.0-52.0); Hemoglobin 14.1 g/dL (14.0-18.0); Immature Granulocyte Absolute 0.06 K/mm3 (0.00-0.031); Immature Granulocyte Percent A 0.4 % (0-0.5); Lymphocytes Absolute Auto 1.27 K/mm3 (0.9-3.2); Lymphocytes Percent Auto 9.2 % (18.3-44.2); Mean Corpuscular HGB Conc 31.6 g/dl (32-36); Mean Corpuscular Hemoglobin 30.1 pg (26-34); Mean Corpuscular Volume 95.1 fl (80-100); Mean Platelet Volume 11.1 fl (7.4-10.4); Monocytes Absolute Auto 0.8 K/mm3 (0.1-0.6); Neutrophils Absolute Auto 11.3 K/mm3 (1.3-6.7); Neutrophils Percent Auto 81.9 % (45.5-73.1); Platelet Count Result 228 k/mm3 (150-375); Red Blood Count 4.69 M/mm3 (4.6-6.20); Red Cell Distribution Width 13.1 % (11.5-14.5); White Blood Count 13.8 K/mm3 (4.5-10.0)
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
[2022-03-08] MEDS: LACTATED RINGERS 1,000 ML 999 ML IV CONT (11:04)
[2022-03-08 11:11] VITALS: BP 94/57; PULSE 74; RESP 18; O2SAT 98
[2022-03-08 11:21] LABS: Basophils Absolute Auto 0.1 K/mm3 (0.0-0.1); Basophils Percent Auto 0.4 % (0.2-1.2); Eosinophils Absolute Auto 0.1 K/mm3 (0-0.3); Eosinophils Percent Auto 0.8 % (0-4.4); Hematocrit 44.2 % (42.0-52.0); Immature Granulocyte Absolute 0.06 K/mm3 (0.00-0.031); Immature Granulocyte Percent A 0.4 % (0-0.5); Lymphocytes Absolute Auto 1.25 K/mm3 (0.9-3.2); Lymphocytes Percent Auto 7.7 % (18.3-44.2); Mean Corpuscular HGB Conc 31.7 g/dl (32-36); Mean Corpuscular Hemoglobin 30.2 pg (26-34); Mean Corpuscular Volume 95.5 fl (80-100); Mean Platelet Volume 10.5 fl (7.4-10.4); Monocytes Absolute Auto 0.9 K/mm3 (0.1-0.6); Monocytes Percent Auto 5.5 % (2.6-8.5); Neutrophils Absolute Auto 13.8 K/mm3 (1.3-6.7); Neutrophils Percent Auto 85.2 % (45.5-73.1); Platelet Count Result 224 k/mm3 (150-375); Red Blood Count 4.63 M/mm3 (4.6-6.20); Red Cell Distribution Width 13.2 % (11.5-14.5); White Blood Count 16.1 K/mm3 (4.5-10.0)
[2022-03-08 11:30] VITALS: BP 110/70; PULSE 72; RESP 16; TEMP 36.9; O2SAT 100
[2022-03-08 12:30] VITALS: BP 122/69; PULSE 75; RESP 16; TEMP 36.9; O2SAT 98
== END 2022-03-08 12:50 | disposition home or self-care (01) ==
PROVIDERS: Emergency Medicine; Emergency Provider Preventive Medicine Aerospace Medicine
DX: K92.1 Melena (principal); R19.7 Diarrhea, unspecified; K64.4 Residual hemorrhoidal skin tags; J44.9 Chronic obstructive pulmonary disease, unspecified; I25.10 Atherosclerotic heart disease of native coronary artery without angina pectoris; E78.5 Hyperlipidemia, unspecified; I10 Essential (primary) hypertension; G14 Postpolio syndrome; H35.30 Unspecified macular degeneration; Z95.5 Presence of coronary angioplasty implant and graft; Z87.01 Personal history of pneumonia (recurrent); Z86.010 Personal history of colon polyps; Z87.442 Personal history of urinary calculi; Z87.891 Personal history of nicotine dependence; Z79.82 Long term (current) use of aspirin
CPT/HCPCS: 36415; 80053; 85025; 85610; 85730; 86850; 86900; 86901; 96360; 99283; J7120

== ENCOUNTER 2022-06-16 14:08 | Observation (INO) | payer OTHER, SELFPAY ==
[2022-06-16] VITALS (32 sets, daily range): BP systolic 103–153; BP diastolic 50–122; PULSE 66–111; RESP 11–24; TEMP 36.4–36.7; O2SAT 93–98; BMI 28.9
--- NOTE | ~2022-06-16 | CT_ITS ---
EXAMINATION: CT abdomen pelvis w con DATE: 06/16/2022 15:23 INDICATION: Bright red blood per rectum, abdominal pain TECHNIQUE: Computed tomography (CT) of the abdomen and pelvis was performed with 100 mL Omnipaque-350 intravenous contrast. Automated exposure control and iterative reconstruction technique were employe d. The dose-length product was 1126.03 mGy-cm. COMPARISON: 03/05/2019. FINDINGS: Lower thorax: Bibasilar scar and atelectasis. Aortic valve, mitral, and coronary artery calcification Liver: Normal. Biliary/Gallbladder: Cholelithiasis. No bile duct dilation. Pancreas: No mass or duct dilation. Spleen: Normal. Adrenals:No mass. Kidneys: Right upper and lower pole simple cysts. Bilateral hypodensities, too small to characterize but also likely represent cysts. No suspicious mass, stone, or hydronephrosis. GI tract: The rectum is dilated to 7.1 cm by formed stool. Short segment distal rectal wall thickenin g. No small bowel dilation. Normal appendix. Diverticulosis without diverticulitis. Uniform bowel wal l enhancement Mesentery/Peritoneum: No ascites, mass, or free air. Retroperitoneum: No mass. Atherosclerotic abdominal aortic and/or arterial calcifications. Pelvis: Mild bladder wall thickening. Prostatomegaly. Soft Tissues: Soft tissues and body wall unremarkable. Bones: No acute osseous finding. Uncomplicated appearing posterior thoracolumbar fusion hardware IMPRESSION: Cholelithiasis. Diverticulosis. Short segment distal rectal wall thickening, consider GI consultation . Fecal impaction, without evidence of stercoral colitis. Reviewed, dictated and finalized at location K. IMPRESSION: Cholelithiasis. Diverticulosis. Short segment distal rectal wall thickening, co nsider GI consultation. Fecal impaction, without evidence of stercoral colitis.
[2022-06-16 14:45] LABS: Basophils Absolute Auto 0.1 K/mm3 (0.0-0.1); Basophils Percent Auto 0.6 % (0.2-1.2); Eosinophils Absolute Auto 0.5 K/mm3 (0-0.3); Eosinophils Percent Auto 4.4 % (0-4.4); Hematocrit 45.7 % (42.0-52.0); Hemoglobin 14.8 g/dL (14.0-18.0); Immature Granulocyte Absolute 0.03 K/mm3 (0.00-0.031); Immature Granulocyte Percent A 0.3 % (0-0.5); Lymphocytes Absolute Auto 2.12 K/mm3 (0.9-3.2); Lymphocytes Percent Auto 18.7 % (18.3-44.2); Mean Corpuscular HGB Conc 32.4 g/dl (32-36); Mean Corpuscular Hemoglobin 30.7 pg (26-34); Mean Corpuscular Volume 94.8 fl (80-100); Mean Platelet Volume 10.4 fl (7.4-10.4); Monocytes Absolute Auto 0.9 K/mm3 (0.1-0.6); Monocytes Percent Auto 7.9 % (2.6-8.5); Neutrophils Absolute Auto 7.7 K/mm3 (1.3-6.7); Neutrophils Percent Auto 68.1 % (45.5-73.1); Platelet Count Result 235 k/mm3 (150-375); Red Blood Count 4.82 M/mm3 (4.6-6.20); Red Cell Distribution Width 13.6 % (11.5-14.5); White Blood Count 11.3 K/mm3 (4.5-10.0)
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
[2022-06-16 14:56] LABS: INR 1.1; Prothrombin Time 13.5 Seconds (11.1-14.7)
[2022-06-16 14:57] LABS: Partial Thromboplastin Time 28.2 SECONDS (22.3-36.8)
[2022-06-16 14:59] LABS: Alanine Aminotransferase 32 U/L (6-50); Albumin Level 4.3 g/dL (3.5-5.1); Alkaline Phosphatase 92 U/L (38-126); Anion Gap 5 mmol/L (8-16); Aspartate Amino Transferase 43 U/L (17-59); Bilirubin,Total 0.6 mg/dL (0.2-1.3); Blood Urea Nitrogen 14 mg/dL (9-20); Calcium 8.8 mg/dL (8.4-10.2); Carbon Dioxide 31 mmol/L (22-30); Chloride 102 mmol/L (98-107); Estimated CRCL calculation 89 ml/min; Estimated Glomerular Filt Rate > 60; Glucose 123 mg/dL (65-110); Potassium 4.1 mmol/L (3.4-5.0); Sodium 138 mmol/L (137-145)
--- NOTE | 2022-06-16 17:48 | PC.NURSE ---
Assisted to [facility], reviewed results of testing done so far. Stool remains bright red.
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
--- NOTE | 2022-06-16 18:50 | PC.NURSE ---
Pt being transported to [address] [place] [address]
--- NOTE | 2022-06-16 18:55 | PC.NURSE ---
This patient, Dov Marcial, was admitted to [facility] Surg Room 331-02. Patient/family oriented to hospital policies and general routines including ID bracelet, bed and alarms, visiting hours, pain management, procedures, bathroom and other care routines, personal items, smoking policy, room service/diet, and visiting hours. Report received from Loli MORAN. Information on how to activate the Rapid Response Team has been discussed. Patient/Family are encouraged to report perceived risks to care and to ask questions if they do not understand what they are told or what they should do.
[2022-06-16 19:57] LABS: Hematocrit 44.2 % (42.0-52.0); Hemoglobin 14.1 g/dL (14.0-18.0)
[2022-06-16] MEDS: ACETAMINOPHEN 325 MG TABLET 650 MG PO (21:30)
[2022-06-16] MEDS: metroNIDAZOLE 500 MG/ISO 100ML 500 MG/100 ML BAG 100 MG IVPB (21:31)
[2022-06-16] MEDS: guaiFENesin 12 HR 600 MG TABCR PO (21:31)
[2022-06-16] MEDS: LORazepam (*CRX) 1 MG TABLET PO (21:31)
[2022-06-16 22:21] LABS: Lactic Acid Reflex 1.7 mmol/L (0.7-2.0)
[2022-06-17 06:00] VITALS: BP 99/55; PULSE 70; RESP 16; TEMP 36.4; O2SAT 97
[2022-06-17] MEDS: metroNIDAZOLE 500 MG/ISO 100ML 500 MG/100 ML BAG 100 MG IVPB ×3 (06:21→21:29)
[2022-06-17 06:23] LABS: Basophils Absolute Auto 0.1 K/mm3 (0.0-0.1); Basophils Percent Auto 0.7 % (0.2-1.2); Eosinophils Absolute Auto 0.4 K/mm3 (0-0.3); Eosinophils Percent Auto 3.5 % (0-4.4); Hematocrit 42.7 % (42.0-52.0); Hemoglobin 13.5 g/dL (14.0-18.0); Immature Granulocyte Absolute 0.03 K/mm3 (0.00-0.031); Immature Granulocyte Percent A 0.3 % (0-0.5); Lymphocytes Absolute Auto 1.58 K/mm3 (0.9-3.2); Mean Corpuscular HGB Conc 31.6 g/dl (32-36); Mean Corpuscular Hemoglobin 30.6 pg (26-34); Mean Corpuscular Volume 96.8 fl (80-100); Mean Platelet Volume 10.9 fl (7.4-10.4); Monocytes Absolute Auto 0.9 K/mm3 (0.1-0.6); Monocytes Percent Auto 8.8 % (2.6-8.5); Neutrophils Percent Auto 70.7 % (45.5-73.1); Platelet Count Result 198 k/mm3 (150-375); Red Blood Count 4.41 M/mm3 (4.6-6.20); Red Cell Distribution Width 13.7 % (11.5-14.5); White Blood Count 9.9 K/mm3 (4.5-10.0)
[2022-06-17 06:41] LABS: Alanine Aminotransferase 24 U/L (6-50); Albumin Level 3.6 g/dL (3.5-5.1); Alkaline Phosphatase 83 U/L (38-126); Anion Gap 4 mmol/L (8-16); Aspartate Amino Transferase 30 U/L (17-59); Bilirubin,Total 0.7 mg/dL (0.2-1.3); Blood Urea Nitrogen 11 mg/dL (9-20); Calcium 8.4 mg/dL (8.4-10.2); Carbon Dioxide 29 mmol/L (22-30); Chloride 105 mmol/L (98-107); Estimated CRCL calculation 89 ml/min; Estimated Glomerular Filt Rate > 60; Glucose 91 mg/dL (65-110); Magnesium 2.1 mg/dL (1.6-2.3); Potassium 4.1 mmol/L (3.4-5.0); Sodium 138 mmol/L (137-145)
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
[2022-06-17] MEDS: guaiFENesin 12 HR 600 MG TABCR PO ×2 (08:19→20:44)
[2022-06-17] MEDS: FUROSEMIDE 20 MG TABLET PO (08:19)
[2022-06-17 08:20] VITALS: PULSE 82; PULSE 88; RESP 16; O2SAT 96
[2022-06-17] MEDS: UMECLIDINIUM/VILANTEROL 62.5-25 MCG ELLIPTA 1 PUFF INHALATION (08:20)
[2022-06-17] MEDS: METOPROLOL TARTRATE 50 MG TAB PO ×2 (08:20→20:44)
--- NOTE | 2022-06-17 11:13 | PM.IMPN ---
Progress Note: A&P Assessment and Plan (1) Lower GI bleed: Code(s): K92.2 - Gastrointestinal hemorrhage, unspecified Status: Acute Assessment and Plan: Patient has had multiple episodes of bright red blood per rectum since this morning as detailed above. May very well be hemorrhoidal bleeding given history of such and reports of frequently straining to have bowel movements. Trend hemoglobin and hematocrit. Dr. Cueto has been consulted and his input is appreciated. (2) Colon wall thickening: Code(s): K63.9 - Disease of intestine, unspecified Status: Acute Assessment and Plan: Wall thickening was noted in a short segment of the distal rectum. While he does have evidence of fecal impaction, there was no evidence to suggest stercoral colitis. Cannot rule out infection in light of the elevated white blood cell count thus will start empiric antibiotics for possible colitis. (3) Fecal impaction: Code(s): K56.41 - Fecal impaction Status: Acute Assessment and Plan: CT shows fecal impaction and the patient endorses chronic constipation for which he takes stool softeners. GI consulted. (4) Hypertension: Qualifiers: Hypertension type: unspecified Qualified Code(s): I10 - Essential (primary) hypertension Code(s): I10 - Essential (primary) hypertension Status: Acute Assessment and Plan: Blood pressures were reviewed and they have been reasonable. Continue antihypertensives and monitor. (5) Chronic obstructive pulmonary disease: Qualifiers: COPD type: COPD with acute lower respiratory infection Qualified Code(s): J44.0 - Chronic obstructive pulmonary disease with (acute) lower respiratory infection Code(s): J44.9 - Chronic obstructive pulmonary disease, unspecified Status: Acute Assessment and Plan: No evidence of acute exacerbation. Continue inhalers. Subjective Date/time seen: 06/17/22 11:13 No complaints Exam Narrative: General: Mildly ill-appearing male in the semi-Huang position in bed in no acute distress. Weight: 86.8 kg. BMI: 29.1. HEENT: PERRL, EOMI. Sclera anicteric. Tacky mucous membranes. Neck: Supple. Respiratory: Lungs are clear to auscultation bilaterally. Cardiovascular: Tachycardic with S1-S2. Telemetry shows sinus tachycardia with rate of 103 at the time my evaluation. Gastrointestinal: Abdomen is soft nontender, and nondistended with slightly hyperactive bowel sounds. Rectal: Deferred. Bright red blood noted in the commode at bedside. Skin: Warm and dry. Generalized pallor. Extremities: No cyanosis or clubbing. Trace pretibial edema bilaterally. Peripheral pulses intact. Neurological: Alert. Cranial nerves 2-12 are grossly intact. No gross focal deficits to casual conversation. Psychiatric: Pleasant and cooperative with appropriate mood. Slightly anxious. Objective Data Vital Signs Vital Signs: Vital Signs - 24 hr 06/16/22 14:25 06/16/22 14:39 06/16/22 14:45 Temperature 97.6 F Pulse Rate 87 88 73 Respiratory Rate 17 17 19 Blood Pressure 153/91 H Pulse Oximetry 96 96 95 Oxygen Delivery Room Air Fraction of Inspired Oxygen 06/16/22 14:46 06/16/22 15:00 06/16/22 15:01 Temperature Pulse Rate 87 81 76 Respiratory Rate 22 H 14 14 Blood Pressure 140/122 H 108/50 L Pulse Oximetry 96 94 98 Oxygen Delivery Fraction of Inspired Oxygen 06/16/22 15:26 06/16/22 15:27 06/16/22 15:30 Temperature Pulse Rate 98 97 99 Respiratory Rate 24 H 14 15 Blood Pressure 124/67 Pulse Oximetry 95 96 93 Oxygen Delivery Fraction of Inspired Oxygen 06/16/22 15:31 06/16/22 15:45 06/16/22 15:46 Temperature Pulse Rate 95 90 97 Respiratory Rate 15 11 L 12 Blood Pressure 118/66 114/67 Pulse Oximetry 94 98 96 Oxygen Delivery Fraction of Inspired Oxygen 06/16/22 16:00 06/16/22 16:01 06/16/22 16:15 Temperature Pulse Rate 99
[2022-06-17] MEDS: ACETAMINOPHEN 325 MG TABLET 650 MG PO (12:33)
[2022-06-17] MEDS: BISACODYL 5 MG TABLET EC 10 MG PO ×3 (12:34→20:44)
[2022-06-17 14:00] VITALS: BP 110/67; PULSE 69; RESP 20; TEMP 36.4; O2SAT 95
[2022-06-17] MEDS: polyethylene glycoL 3350 238 GM BOTTLE PO (15:21)
--- NOTE | 2022-06-17 15:28 | PCCCNOTE ---
On 06/17/22, the student, [Roz Sparrow ], provided care and completed [facility] documentation on this patient. I have reviewed the student's documentation and agree with the findings.
[2022-06-17] MEDS: ATORVASTATIN 40 MG TABLET 80 MG PO (20:43)
[2022-06-17] MEDS: LORazepam (*CRX) 1 MG TABLET PO (20:43)
[2022-06-17 20:44] VITALS: PULSE 70
[2022-06-17 21:59] VITALS: BP 136/75; PULSE 102; RESP 14; TEMP 36.2; O2SAT 96
[2022-06-17] MEDS: ONDANSETRON INJ 4 MG/2 ML VIAL IV PUSH (22:35)
[2022-06-18] VITALS (7 sets, daily range): BP systolic 100–134; BP diastolic 65–110; PULSE 88–104; RESP 14–20; TEMP 35.8–36.4; O2SAT 96–98
[2022-06-18] MEDS: metroNIDAZOLE 500 MG/ISO 100ML 500 MG/100 ML BAG 100 MG IVPB ×3 (05:07→21:52)
[2022-06-18] MEDS: polyethylene glycoL 3350 238 GM BOTTLE PO ×2 (07:30→18:03)
[2022-06-18] MEDS: FUROSEMIDE 20 MG TABLET PO (08:45)
[2022-06-18] MEDS: UMECLIDINIUM/VILANTEROL 62.5-25 MCG ELLIPTA 1 PUFF INHALATION (09:16)
[2022-06-18] MEDS: METOPROLOL TARTRATE 50 MG TAB PO ×2 (09:26→20:24)
--- NOTE | 2022-06-18 10:41 | PM.IMPN ---
Progress Note: A&P Assessment and Plan (1) Lower GI bleed: Code(s): K92.2 - Gastrointestinal hemorrhage, unspecified Status: Acute Assessment and Plan: Appreciate GI input. Plan for scope. Await results of colonoscopy. (2) Colon wall thickening: Code(s): K63.9 - Disease of intestine, unspecified Status: Acute Assessment and Plan: Wall thickening was noted in a short segment of the distal rectum. While he does have evidence of fecal impaction, there was no evidence to suggest stercoral colitis. Cannot rule out infection in light of the elevated white blood cell count thus will start empiric antibiotics for possible colitis. (3) Fecal impaction: Code(s): K56.41 - Fecal impaction Status: Acute Assessment and Plan: CT shows fecal impaction and the patient endorses chronic constipation for which he takes stool softeners. GI consulted. (4) Hypertension: Qualifiers: Hypertension type: unspecified Qualified Code(s): I10 - Essential (primary) hypertension Code(s): I10 - Essential (primary) hypertension Status: Acute Assessment and Plan: Blood pressures were reviewed and they have been reasonable. Continue antihypertensives and monitor. (5) Chronic obstructive pulmonary disease: Qualifiers: COPD type: COPD with acute lower respiratory infection Qualified Code(s): J44.0 - Chronic obstructive pulmonary disease with (acute) lower respiratory infection Code(s): J44.9 - Chronic obstructive pulmonary disease, unspecified Status: Acute Assessment and Plan: No evidence of acute exacerbation. Continue inhalers. Subjective Date/time seen: 06/18/22 10:41 No complaints Exam Narrative: General: Mildly ill-appearing male in the semi-Huang position in bed in no acute distress. Weight: 86.8 kg. BMI: 29.1. HEENT: PERRL, EOMI. Sclera anicteric. Tacky mucous membranes. Neck: Supple. Respiratory: Lungs are clear to auscultation bilaterally. Cardiovascular: Tachycardic with S1-S2. Telemetry shows sinus tachycardia with rate of 103 at the time my evaluation. Gastrointestinal: Abdomen is soft nontender, and nondistended with slightly hyperactive bowel sounds. Rectal: Deferred. Bright red blood noted in the commode at bedside. Skin: Warm and dry. Generalized pallor. Extremities: No cyanosis or clubbing. Trace pretibial edema bilaterally. Peripheral pulses intact. Neurological: Alert. Cranial nerves 2-12 are grossly intact. No gross focal deficits to casual conversation. Psychiatric: Pleasant and cooperative with appropriate mood. Slightly anxious. Objective Data Vital Signs Vital Signs: Vital Signs - 24 hr 06/17/22 14:00 06/17/22 20:44 06/17/22 21:59 Temperature 97.5 F L 97.1 F L Pulse Rate 69 70 102 H Respiratory Rate 20 14 Blood Pressure 110/67 136/75 Pulse Oximetry 95 96 Oxygen Delivery 06/18/22 06:00 06/18/22 07:24 06/18/22 08:23 Temperature 96.9 F L 96.5 F L Pulse Rate 98 103 H Respiratory Rate 14 20 Blood Pressure 124/110 H 100/65 134/75 Pulse Oximetry 98 96 Oxygen Delivery 06/18/22 09:26 06/18/22 08:45 Temperature Pulse Rate 104 H Respiratory Rate Blood Pressure Pulse Oximetry Oxygen Delivery Room Air Intake/Output Intake/Output: Intake & Output 06/15/22 06/16/22 06/17/22 06/18/22 23:59 23:59 23:59 23:59 Intake Total 250 740 240 Output Total 1000 Balance 250 740 -760 Meds/Results Medications: Active Medications Generic Name Dose Route Start Last Admin Trade Name Freq PRN Reason Stop Dose Admin Acetaminophen 650 mg 06/16/22 20:24 06/17/22 12:33 Acetaminophen 325 Mg Tablet PO 650 mg Q6H PRN Administration Mild Pain (1-3) Or Fever Albuterol 2 puff 06/16/22 20:24 Albuterol Sulfate (*Sp) Aerosol 1 Puff INHALATION QIDRT PRN Shortness Of Breath Aspirin 81 mg 06/17/22 09:00 06/18/22 08:
--- NOTE | 2022-06-18 13:36 | WPDGIPROGNO ---
Progress Note: A&P Assessment and Plan (1) Colon wall thickening: Code(s): K63.9 - Disease of intestine, unspecified Status: Acute Assessment and Plan: probably stercoral colitis will give more bowel prep and colonoscopy tomorrow (2) Fecal impaction: Code(s): K56.41 - Fecal impaction Status: Acute Assessment and Plan: treated colonoscopy 1 year ago (3) BRBPR (bright red blood per rectum): Code(s): K62.5 - Hemorrhage of anus and rectum Status: Acute Assessment and Plan: if we find hemorrhoids also will treat with irc (4) Lower GI bleed: Code(s): K92.2 - Gastrointestinal hemorrhage, unspecified Status: Acute Assessment and Plan: h/h stable (5) Hypertension: Qualifiers: Hypertension type: unspecified Qualified Code(s): I10 - Essential (primary) hypertension Code(s): I10 - Essential (primary) hypertension Status: Acute Subjective Date/time seen: 06/18/22 13:36 Interval history: he still had greenish stool and was not adequately prepped for colonoscopy today, denies any more bleeding. Review of Systems Review of Systems: All systems reviewed & are unremarkable except as noted in HPI and below Exam Const: General: comfortable HENMT: Face/Nose/Sinus: Normal nares present Eyes: General: appearance normal, both eyes and all related structures Neck: Neck: supple Resp: Effort & Inspection: normal respiratory effort Cardio: Rate: regular rate GI: GI Palp: Yes Soft to palpation, No Tenderness to palpation present (GI) and No Guarding due to palpation present (GI) Skin: General skin exam: normal color Neuro: Speech: normal speech Motor exam (neuro): 5/5 motor strength present throughout Objective Data Vital Signs Vital Signs: Vital Signs - 24 hr 06/17/22 14:00 06/17/22 20:44 06/17/22 21:59 Temperature 97.5 F L 97.1 F L Pulse Rate 69 70 102 H Respiratory Rate 20 14 Blood Pressure 110/67 136/75 Pulse Oximetry 95 96 Oxygen Delivery 06/18/22 06:00 06/18/22 07:24 06/18/22 08:23 Temperature 96.9 F L 96.5 F L Pulse Rate 98 103 H Respiratory Rate 14 20 Blood Pressure 124/110 H 100/65 134/75 Pulse Oximetry 98 96 Oxygen Delivery 06/18/22 09:26 06/18/22 08:45 Temperature Pulse Rate 104 H Respiratory Rate Blood Pressure Pulse Oximetry Oxygen Delivery Room Air Intake/Output Intake/Output: Intake & Output 06/15/22 06/16/22 06/17/22 06/18/22 23:59 23:59 23:59 23:59 Intake Total 250 740 240 Output Total 1000 Balance 250 740 -760 Meds/Results Medications: Active Medications Generic Name Dose Route Start Last Admin Trade Name Freq PRN Reason Stop Dose Admin Acetaminophen 650 mg 06/16/22 20:24 06/17/22 12:33 Acetaminophen 325 Mg Tablet PO 650 mg Q6H PRN Administration Mild Pain (1-3) Or Fever Albuterol 2 puff 06/16/22 20:24 Albuterol Sulfate (*Sp) Aerosol 1 Puff INHALATION QIDRT PRN Shortness Of Breath Aspirin 81 mg 06/17/22 09:00 06/18/22 08:44 Aspirin 81 Mg Enteric Tablet PO Not Given DAILY JIMENEZ Atorvastatin Calcium 80 mg 06/17/22 21:00 06/17/22 20:43 Atorvastatin 40 Mg Tablet PO 80 mg HS JIMENEZ Administration Docusate Sodium 100 mg 06/16/22 20:24 Docusate Sodium 100 Mg Capsule PO DAILY PRN Constipation Furosemide 20 mg 06/17/22 09:00 06/18/22 08:45 Furosemide 20 Mg Tablet PO 20 mg DAILY JIMENEZ Administration Guaifenesin 600 mg 06/16/22 21:00 06/18/22 09:27 Guaifenesin 12 Hr 600 Mg Tabcr PO Not Given Q12HR JIMENEZ Metronidazole 500 mg in 100 mls @ 100 mls/hr 06/16/22 22:00 06/18/22 05:07 Flagyl 500 Mg/Iso Soln 100 Ml IVPB 100 mls/hr Q8H JIMENEZ Administration Levofloxacin/Dextrose 750 mg in 150 mls @ 100 mls/hr 06/16/22 22:00 06/17/22 21:30 Levaquin 750 Mg/D5w 150 Ml IVPB 100 mls/hr Q24H JIMENEZ Administration Lorazepam 1 mg 06/16/22
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
[2022-06-18] MEDS: LORazepam (*CRX) 1 MG TABLET PO (20:24)
[2022-06-18] MEDS: guaiFENesin 12 HR 600 MG TABCR PO (20:24)
[2022-06-18] MEDS: ATORVASTATIN 40 MG TABLET 80 MG PO (20:24)
[2022-06-18] MEDS: ACETAMINOPHEN 325 MG TABLET 650 MG PO (20:25)
[2022-06-19] MEDS: metroNIDAZOLE 500 MG/ISO 100ML 500 MG/100 ML BAG 100 MG IVPB (06:46)
[2022-06-19 08:48] VITALS: PULSE 94
[2022-06-19] MEDS: guaiFENesin 12 HR 600 MG TABCR PO (08:48)
[2022-06-19] MEDS: METOPROLOL TARTRATE 50 MG TAB PO (08:48)
[2022-06-19] MEDS: FUROSEMIDE 20 MG TABLET PO (08:48)
[2022-06-19] MEDS: ASPIRIN 81 MG ENTERIC TABLET PO (08:48)
[2022-06-19] MEDS: UMECLIDINIUM/VILANTEROL 62.5-25 MCG ELLIPTA 1 PUFF INHALATION (09:53)
--- NOTE | 2022-06-19 11:20 | PC.NURSE ---
Pt to GI lab via wheelchair
[2022-06-19 11:31] VITALS: BP 119/63; PULSE 66; RESP 18; TEMP 36.3; O2SAT 99
[2022-06-19] MEDS: LACTATED RINGERS 1,000 ML 150 ML IV CONT (11:33)
[2022-06-19 12:07] VITALS: BP 91/56; PULSE 74; RESP 23; O2SAT 99
[2022-06-19 12:17] VITALS: BP 94/61; PULSE 76; RESP 18; O2SAT 99
[2022-06-19 12:27] VITALS: BP 96/60; PULSE 72; RESP 18; O2SAT 100
--- NOTE | 2022-06-19 13:20 | PM.DS ---
DS: Admitting Diagnosis Discharge Date 06/19/22 Admitting Diagnosis Lower GI Bleed Constipation Stercoral Colitis DS: Discharge Diagnosis Discharge Diagnosis (1) BRBPR (bright red blood per rectum): Code(s): K62.5 - Hemorrhage of anus and rectum Status: Acute (2) Fecal impaction: Code(s): K56.41 - Fecal impaction Status: Acute (3) Colon wall thickening: Code(s): K63.9 - Disease of intestine, unspecified Status: Acute (4) Lower GI bleed: Code(s): K92.2 - Gastrointestinal hemorrhage, unspecified Status: Acute DS: Summary Hospital Course Reason for hospitalization: Lower GI bleed Stercoral Colitis Constipation Hospital Course: ?72-year-old male with history of hemorrhoids, hypertension, coronary artery disease, and COPD who presented to the emergency department from home for evaluation of rectal bleeding.?In the ED he had several episodes of passing bright red blood. GI was consulted, started on abx for possible stercoral colitis,Wall thickening was noted in a short segment of the distal rectum. Treated for constipation, underwent colonoscopy, which showed diverticulosis, with no evidence o bleeding. Discharged on short course of oral abx in stable condition. Status at Discharge Functional status at discharge: independent ambulation Overall status at discharge: patient is back to baseline Time Spent with Patient Time attestation: Total time spent providing and/or coordinating discharge services: Time spent: Greater than 30 minutes Exam Narrative: General: Mildly ill-appearing male in the semi-Huang position in bed in no acute distress. Weight: 86.8 kg. BMI: 29.1. HEENT: PERRL, EOMI. Sclera anicteric. Tacky mucous membranes. Neck: Supple. Respiratory: Lungs are clear to auscultation bilaterally. Cardiovascular: Tachycardic with S1-S2. Telemetry shows sinus tachycardia with rate of 103 at the time my evaluation. Gastrointestinal: Abdomen is soft nontender, and nondistended with slightly hyperactive bowel sounds. Rectal: Deferred. Bright red blood noted in the commode at bedside. Skin: Warm and dry. Generalized pallor. Extremities: No cyanosis or clubbing. Trace pretibial edema bilaterally. Peripheral pulses intact. Neurological: Alert. Cranial nerves 2-12 are grossly intact. No gross focal deficits to casual conversation. Psychiatric: Pleasant and cooperative with appropriate mood. Slightly anxious. Discharge Plan Discharge Attending physician on discharge: Keyona Grace Consulting providers: Raudel Cueto Discharging Clinician: Keyona Grace Anticipated Discharge Date/Time: 06/19/22 13:17 Patient Disposition: Home, Self-Care Activity: as tolerated Diet: regular Patient Instructions: Antibiotic Form, Gastrointestinal Bleeding (DC), Colonoscopy (DC) Stand Alone Forms: General Discharge Information Follow-up/Referrals: PHYSICIAN NOT ON STAFF,NONSTAFF [Primary Care Provider] - 2 Weeks Discharge Medications: New levofloxacin 500 mg tablet 500 mg PO DAILY 4 Days Qty: 4 0RF metronidazole 500 mg tablet 500 mg PO Q8H 4 Days Qty: 12 0RF Continued docusate sodium [Dulcolax Stool Softener (dss)] 100 mg Capsule 100 mg PO DAILY PRN (Reason: Constipation) aspirin [Adult Low Dose Aspirin] 81 mg Tablet,Delayed Release (Dr/Ec) 81 mg PO DAILY metoprolol tartrate [Lopressor] 50 mg tablet 50 mg PO BID guaifenesin [Mucinex] 600 mg Tablet Extended Release 12hr 600 mg PO BID atorvastatin 40 mg Tablet 80 mg PO DAILY lorazepam 1 mg Tablet 1 mg PO HS albuterol sulfate [ProAir HFA] 90 mcg/actuation Hfa Aerosol Inhaler 2 puff INHALATION QID PRN (Reason: Shortness Of Breath) acetaminophen [Mapap (acetaminophen)] 325 mg Tablet 650 mg PO Q6H PRN (Reason: Mild Pain (1-3) Or Fever) Qty: 0 0RF meclizine 25 mg tablet 25 mg PO TID PRN (Reason: dizziness) Qty: 30 0RF furosemide 2
== END 2022-06-19 13:45 | disposition home or self-care (01) ==
LOC: ANHED 14:55 → ANH3MEDSUR 20:21
PROVIDERS: Internal Medicine Gastroenterology; Physician Assistant; Admitting Provider Internal Medicine; Emergency Provider Emergency Medicine; Visit Provider Internal Medicine
PROC: 0DJD8ZZ Inspection of Lower Intestinal Tract, Via Natural or Artificial Opening Endoscopic (ICD-10-PCS; CPT 45378; principal; 2022-06-19 14:00)
DX: K57.30 Diverticulosis of large intestine without perforation or abscess without bleeding (principal); K56.41 Fecal impaction; I10 Essential (primary) hypertension; R00.0 Tachycardia, unspecified; I25.10 Atherosclerotic heart disease of native coronary artery without angina pectoris; Z95.5 Presence of coronary angioplasty implant and graft; J44.9 Chronic obstructive pulmonary disease, unspecified; G14 Postpolio syndrome; R53.1 Weakness; R53.83 Other fatigue; E78.5 Hyperlipidemia, unspecified; Z87.891 Personal history of nicotine dependence; Z79.51 Long term (current) use of inhaled steroids; Z79.82 Long term (current) use of aspirin; Z79.1 Long term (current) use of non-steroidal anti-inflammatories (NSAID); Z79.899 Other long term (current) drug therapy
CPT/HCPCS: 45378; 36415; 74177; 80053; 83605; 83735; 85014; 85018; 85025; 85610; 85730; 86850; 86900; 86901; 94640; 96361; 96365; 96366; 96368; 96375; 96376; 99285; A9270; G0378; J1956; J2405; J2704; J7120; Q9967

== ENCOUNTER 2022-07-16 10:08 | Outpatient (CLI) | payer OTHER, SELFPAY ==
--- NOTE | ~2022-07-16 | CT_ITS ---
EXAMINATION: CT lung screening DATE: 07/16/2022 10:36 INDICATION: Personal history of nicotine dependence TECHNIQUE: Computed tomography (CT) of the chest was performed without intravenous contrast. The dose -length product was 205.31 mGy-cm. Automated exposure control and iterative reconstruction technique were employed. COMPARISON: CT dated 07/12/2021 FINDINGS: There is chronic consolidation of the right middle and lower lobe, likely atelectasis/scarr ing. There is chronic left lower lobe atelectasis/scarring. Stable small right-sided pulmonary nodule s measuring 4 mm or less. Mild emphysema. There is scoliosis. There are calcified pulmonary nodules, consistent with chronic granulomatous disease. There is kyphosis. Dunbar rods are present. Possib le gallstones. Otherwise, the upper abdomen is unremarkable. IMPRESSION: 1. Lung-RADS category 2: Benign appearance or behavior. Continue annual screening with noncontrast lo w-dose chest CT in 12 months. Reviewed, dictated and finalized at location L. IMPRESSION: 1. Lung-RADS category 2: Benign appearance or behavior. Continue annual screeni ng with noncontrast low-dose chest CT in 12 months.
== END 2022-07-16 10:09 | disposition home or self-care (01) ==
PROVIDERS: Visit Provider Nurse Practitioner Family
DX: Z12.2 Encounter for screening for malignant neoplasm of respiratory organs (principal); Z87.891 Personal history of nicotine dependence
CPT/HCPCS: 71271

== ENCOUNTER 2022-09-12 08:37 | Inpatient (IN) | payer OTHER, SELFPAY ==
[2022-09-12] VITALS (24 sets, daily range): BP systolic 97–124; BP diastolic 70–91; PULSE 86–123; RESP 16–22; TEMP 36.4–37.3; O2SAT 94–100; BMI 29.0
--- NOTE | ~2022-09-12 | XR_ITS ---
EXAMINATION: XR chest 2V DATE: 09/12/2022 09:08 INDICATION: Shortness of breath. Dyspnea on exertion. TECHNIQUE: Frontal and lateral views of the chest were obtained. COMPARISON: Chest 2 views 08/07/2021, chest CT 07/16/2022 FINDINGS: There are airspace opacities at the lung bases. There is blunting of the costophrenic angle s. No pneumothorax. The heart size is normal. There are posterior rods in the spine. IMPRESSION: 1. Airspace opacities at the lung bases, consistent with atelectasis versus pneumonia. 2. Blunting of the costophrenic angles, consistent with scarring versus tiny pleural effusions. Reviewed, dictated and finalized at location A. IMPRESSION: 1. Airspace opacities at the lung bases, consistent with atelectasis versus pne umonia. 2. Blunting of the costophrenic angles, consistent with scarring versus tiny pl eural effusions.
--- NOTE | ~2022-09-12 | CT_ITS ---
EXAMINATION:CT diagnostic chest wo con DATE: 09/13/2022 15:00 INDICATION: Pericardial effusion. TECHNIQUE: Computed tomography (CT) of the chest was performed without intravenous contrast. Automate d exposure control and iterative reconstruction technique were employed. The dose-length product (DLP ) was 441.59 mGy-cm. COMPARISON: Chest CT 07/16/2022 FINDINGS: There is mild emphysema. There is mild atelectasis bilaterally. There are small pleural eff usions, left worse than right. The heart size is normal. There are coronary artery calcifications. No pericardial effusion. There is a large pericardial effusion. There is dextroscoliosis of thoracic sp ine and levoscoliosis of thoracolumbar spine. There are posterior fixation rods in the spine. IMPRESSION: 1. Large pericardial effusion, new from 07/16/22. 2. Small pleural effusions, left worse than right. 3. Mild emphysema. Reviewed, dictated and finalized at location A.
--- NOTE | 2022-09-12 08:42 | ECG_ITS ---
Measurements Intervals [place] Rate: 108 P: 39 NJ: 191 QRS: 31 QRSD: 82 T: 16 QT: 301 QTc: 405 Interpretive Statements SINUS TACHYCARDIA POSSIBLE LEFT ATRIAL ENLARGEMENT LOW QRS VOLTAGE IN PRECORDIAL LEADS BORDERLINE T WAVE ABNORMALITY- ANTERIOR LEADS BASELINE ARTIFACT- I, III, AVR, AVL, AVF BORDERLINE ECG COMPARED TO ECG 12/04/2021 09:47:56 SINUS TACHYCARDIA NOW PRESENT Electronically Signed On 09-12-2022 8:53:02 CDT by Edy Vogel D.O.
[2022-09-12 09:02] LABS: Basophils Absolute Auto 0.1 K/mm3 (0.0-0.1); Basophils Percent Auto 0.6 % (0.2-1.2); Eosinophils Absolute Auto 0.3 K/mm3 (0-0.3); Eosinophils Percent Auto 2.2 % (0-4.4); Hematocrit 42.3 % (42.0-52.0); Hemoglobin 13.2 g/dL (14.0-18.0); Immature Granulocyte Absolute 0.04 K/mm3 (0.00-0.031); Immature Granulocyte Percent A 0.4 % (0-0.5); Lymphocytes Absolute Auto 1.83 K/mm3 (0.9-3.2); Lymphocytes Percent Auto 16.3 % (18.3-44.2); Mean Corpuscular HGB Conc 31.2 g/dl (32-36); Mean Corpuscular Hemoglobin 29.7 pg (26-34); Mean Corpuscular Volume 95.1 fl (80-100); Mean Platelet Volume 10.2 fl (7.4-10.4); Monocytes Absolute Auto 1.2 K/mm3 (0.1-0.6); Monocytes Percent Auto 10.5 % (2.6-8.5); Neutrophils Absolute Auto 7.9 K/mm3 (1.3-6.7); Platelet Count Result 273 k/mm3 (150-375); Red Blood Count 4.45 M/mm3 (4.6-6.20); Red Cell Distribution Width 13.5 % (11.5-14.5); White Blood Count 11.2 K/mm3 (4.5-10.0)
[2022-09-12 09:12] LABS: INR 1.1; Partial Thromboplastin Time 30.8 SECONDS (22.3-36.8)
[2022-09-12 09:17] LABS: Alanine Aminotransferase 38 U/L (6-50); Albumin Level 3.9 g/dL (3.5-5.1); Alkaline Phosphatase 86 U/L (38-126); Anion Gap 6 mmol/L (8-16); Aspartate Amino Transferase 38 U/L (17-59); Bilirubin,Total 0.8 mg/dL (0.2-1.3); Blood Urea Nitrogen 12 mg/dL (9-20); Calcium 8.4 mg/dL (8.4-10.2); Carbon Dioxide 31 mmol/L (22-30); Chloride 102 mmol/L (98-107); Estimated CRCL calculation 77 ml/min; Estimated Glomerular Filt Rate > 60; Glucose 116 mg/dL (65-110); Potassium 4.4 mmol/L (3.4-5.0); Sodium 139 mmol/L (137-145)
[2022-09-12 09:26] LABS: NT Pro B Type Natriuretic Pept 417 pg/mL (19.9-100)
[2022-09-12 09:29] LABS: Troponin I < 0.012 ng/mL (0.000-0.034)
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
[2022-09-12] MEDS: FUROSEMIDE INJ 40 MG/4 ML VIAL IV PUSH (11:06)
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
--- NOTE | 2022-09-12 13:00 | ECHO_ITS ---
Patient Info Name: Dov Marcial Age: 72 years : 1950 Gender: Male Ht: 68 in Wt: 195 lbs BSA: 2.08 m2 HR: 90 bpm BP: 102 / 87 mmHg Heart Rhythm: Sinus Rhythm Technical Quality: Fair Exam Date: 09/12/2022 2:17 PM Exam Location: [facility] Pulmonary Patient Status: Outpatient Admit Date: 09/12/2022 Staff Ordering Physician: Monse Rios PA-C Automotive Consultant: Brenden Florence RDCS Attending Provider: Isaiah Mautte MD Referring Physician: Blanca CASTRO; Exam Type: CA echo doppler color flow Study Info Indications - sob/CAD/HTN/COPD Complete two-dimensional, color flow and Doppler transthoracic echocardiogram is performed. Summary 1. Complete two-dimensional, color flow and Doppler transthoracic echocardiogram is performed. 2. Left ventricular chamber dimension is normal. 3. Left ventricular systolic function is normal, estimated at 65-70%. 4. There is mildly increased left ventricular wall thickness. 5. The left ventricular diastolic function is grade I diastolic dysfunction. 6. Left atrial chamber dimension is mildly enlarged. 7. There is mild tricuspid valve regurgitation. 8. There is large pericardial effusion but without clear evidence of tamponade physiology. No significant respiratory variation seen when analyzing mitral or tricuspid valve inflow patterns. 9. The pericardium appears thickened pericardium. 10. Right atrial free wall invagination consistent with elevated pericardial pressures. Left Ventricle Left ventricular chamber dimension is normal. Left ventricular systolic function is normal, estimated at 65-70%. There is mildly increased left ventricular wall thickness. The left ventricular diastolic function is grade I diastolic dysfunction. Right Ventricle Right ventricular chamber dimension is normal. Right ventricular systolic function is normal. Left Atria Left atrial chamber dimension is mildly enlarged. Right Atria Right atrial chamber dimension is normal. Right atrial free wall invagination consistent with elevated pericardial pressures. Atrial Septum Intact interatrial septum visualized by color flow imaging. Aortic Valve The aortic valve is trileaflet. There is mild aortic valve sclerosis. There is no aortic valve stenosis. There is trace aortic valve regurgitation. Pulmonic Valve The pulmonic valve is normal. There is no pulmonic valve stenosis. There is trace pulmonic regurgitation. Mitral Valve The mitral valve has normal leaflets. There is no mitral valve stenosis. There is trace mitral valve regurgitation. Tricuspid Valve The tricuspid valve leaflets are normal. There is no significant tricuspid valve stenosis. There is mild tricuspid valve regurgitation. Pericardium/Pleural The pericardium appears thickened pericardium. There is large pericardial effusion but without clear evidence of tamponade physiology. No significant respiratory variation seen when analyzing mitral or tricuspid valve inflow patterns. Inferior Vena Cava Dilated inferior vena cava with >50% collapse upon inspiration consistent with normal right atrial pressure, 10 mmHg. Aorta The aortic root size at the sinus of Valsalva is normal. Left Ventricular Outflow Tract Name Value Normal LVOT 2D LVOT Diameter 1.8 cm LVOT Doppler --
--- NOTE | 2022-09-12 15:30 | ADMGEN ---
Addendum entered by Cristina Perez RN 09/12/22 15:31: Report from Amarilis in ER. Original Note: This patient, Dov Marcial, was admitted to 3 Med Surg Room 302-01. Patient/family oriented to hospital policies and general routines including ID bracelet, bed and alarms, visiting hours, pain management, procedures, bathroom and other care routines, personal items, smoking policy, room service/diet, and visiting hours. Information on how to activate the Rapid Response Team has been discussed. Patient/Family are encouraged to report perceived risks to care and to ask questions if they do not understand what they are told or what they should do. Report from Amarilis srinivasann
[2022-09-12] MEDS: levoFLOXacin 750 MG/D5W 150 ML 750 MG/150 ML BAG 100 MG IVPB (17:45)
[2022-09-12 18:12] LABS: Magnesium 2.2 mg/dL (1.6-2.3)
[2022-09-12 18:24] LABS: Troponin I < 0.012 ng/mL (0.000-0.034)
[2022-09-12 18:34] LABS: Erythrocyte Sedimentation Rate 80 mm/hr (0-20)
[2022-09-12 19:15] LABS: Procalcitonin 0.1 ng/mL
[2022-09-12] MEDS: ACETAMINOPHEN 325 MG TABLET 650 MG PO (22:26)
[2022-09-12] MEDS: LORazepam (*CRX) 1 MG TABLET PO (22:27)
[2022-09-12] MEDS: METOPROLOL TARTRATE 50 MG TAB PO (22:38)
[2022-09-12] MEDS: guaiFENesin 12 HR 600 MG TABCR PO (22:38)
[2022-09-13] VITALS (12 sets, daily range): BP systolic 93–106; BP diastolic 61–84; PULSE 86–123; RESP 16–20; TEMP 36.4–37.2; O2SAT 94–100
[2022-09-13 07:42] LABS: Hemoglobin 12.8 g/dL (14.0-18.0); Mean Corpuscular Hemoglobin 30.2 pg (26-34); Mean Corpuscular Volume 94.3 fl (80-100); Mean Platelet Volume 10.3 fl (7.4-10.4); Platelet Count Result 258 k/mm3 (150-375); Red Blood Count 4.24 M/mm3 (4.6-6.20); Red Cell Distribution Width 13.4 % (11.5-14.5); White Blood Count 9.5 K/mm3 (4.5-10.0)
[2022-09-13] MEDS: ATORVASTATIN 40 MG TABLET 80 MG PO (09:14)
[2022-09-13] MEDS: FUROSEMIDE 20 MG TABLET PO (09:14)
[2022-09-13] MEDS: METOPROLOL TARTRATE 50 MG TAB PO ×2 (09:14→21:45)
[2022-09-13] MEDS: guaiFENesin 12 HR 600 MG TABCR PO ×2 (09:15→21:45)
--- NOTE | 2022-09-13 10:24 | PM.CNCAR ---
Assessment and Plan Assessment and plan (1) Pericardial effusion: Code(s): I31.39 - Other pericardial effusion (noninflammatory) Status: Acute (2) Shortness of breath: Code(s): R06.02 - Shortness of breath Status: Acute Plan this is a 72-year-old man with chronic disease which is been stable since PCI in 2007. Has not had any ischemic problems or symptoms in a long time he now presents with some exertional shortness of breath he does have COPD with a 52 year history of smoking in the past discontinued in 2018. He has a moderate-sized circumferential pericardial effusion with thickening pericardium but no physical exam evidence of tamponade. He does not have distended jugular veins and on careful examination he does not have a significant pulses paradoxicus. At this time I would recommend repeating a CT of his chest to re-evaluate for evidence of malignancy especially with his smoking history. It might be helpful to have his pre wave assembler see him while he is here as well. Depending on these findings we may have to consider draining the pericardial fluid. It is not a large effusion and it would likely be safer to drain it with a subxiphoid incision rather than percutaneously although I will follow along with you and determine that after we see his CT results. If he does have stigmata of a malignant process then a that would be another argument 3rd toward straining this with a subxiphoid incision as a pericardial window could made at the same time. Lito Ritchie MD [facility] History of Present Illness History of Present Illness Consult date/time: 09/13/22 10:24 Reason For Visit: CHF Exacerbation/Dyspnea on Exertion Narrative: this is a 72-year-old man I am seeing at the request of the hospitalist because he has a pericardial effusion. This is a patient that is unknown to me prior to this encounter but he is known to and follows regularly with my partner, Dr. Ford. The patient has a history of coronary artery disease that dates back to 2007 and at that time he underwent percutaneous revascularization in [place] at another hospital. Because of his is history of ischemic heart disease he still has been seen in our office for follow-up for a number years. He did have undergo a follow-up catheterization by subsequently which demonstrated [id number] diffuse coronary artery disease with very good LV function for which medical therapy was recommended. He was last seen office follow-up in February of this year that time was doing well. He has a longstanding history of cigarette smoking for 52 years which he finally quit back in 2018. He came to the hospital yesterday because of shortness of breath with mild activity which began recently. He states the symptoms began to be noticeable especially in the last week to 10 days. He is not having any chest pain he denies any orthopnea or PND or accumulating edema. On arrival in the emergency room his chest x-ray appears to show enlargement of the cardiac silhouette which is noticeable when compared to previous films. An echocardiogram was done yesterday which was read by 1 of my partners that shows a moderate-size circumferential pericardial effusion. I did review the echocardiogram myself today it also shows thickening of the pericardium and the heart itself looks okay the left ventricle is kaci vigorously there are no obvious stigmata of cardiac tamponade seen on that echo. In this setting I am seeing him in consultation he is resting comfortably in his room without any other complaints. He does have a history of COPD for which he follows with pulmonology he also has a history of hypertension anxiety disorder. Because of his COPD and prior smoking he does get his periodic chest CTs performed. Most recent of these was just done in June of this year. It does describe some pulmonary nodules which it mentions are stable and benign in appearance on
[2022-09-13 10:49] LABS: Alanine Aminotransferase 79 U/L (6-50); Albumin Level 3.3 g/dL (3.5-5.1); Alkaline Phosphatase 81 U/L (38-126); Anion Gap 8 mmol/L (8-16); Aspartate Amino Transferase 80 U/L (17-59); Bilirubin,Total 0.7 mg/dL (0.2-1.3); Blood Urea Nitrogen 13 mg/dL (9-20); Calcium 8.4 mg/dL (8.4-10.2); Carbon Dioxide 29 mmol/L (22-30); Chloride 101 mmol/L (98-107); Estimated CRCL calculation 89 ml/min; Estimated Glomerular Filt Rate > 60; Glucose 100 mg/dL (65-110); Magnesium 2.2 mg/dL (1.6-2.3); Sodium 138 mmol/L (137-145)
--- NOTE | 2022-09-13 12:58 | PCCCNOTE ---
On 09/13/22, the student, [Roz Sparrow ], provided care and completed [employer] [employer] hospital documentation on this patient. I have reviewed the student's documentation and agree with the findings.
--- NOTE | 2022-09-13 13:30 | PM.IMPN ---
Progress Note: A&P Assessment and Plan (1) Pericardial effusion: Code(s): I31.39 - Other pericardial effusion (noninflammatory) Status: Acute Assessment and Plan: The patient presented to the emergency department for evaluation of shortness of breath as per HPI. Labs, imaging, EKG, and all reports were personally reviewed. In addition to shortness of breath on exertion he has also been experiencing some mid chest tightness. Echocardiogram showed a large pericardial effusion; no clear evidence to suggest tamponade. He received a dose of Lasix in the ED for suspected CHF though will hold on further IV diuresis for now as he appears clinically compensated. Cardiology has been consulted and their input is greatly appreciated. Aspirin has been placed on hold in case he requires pericardiocentesis. ESR and CRP elevated Cardiology recommending CT chest to evaluate for possible malignancy. (2) Shortness of breath: Code(s): R06.02 - Shortness of breath Status: Acute Assessment and Plan: Likely due to pericardial effusion. (3) Pneumonia: Qualifiers: Laterality: left Lung location: lower lobe of lung Pneumonia type: due to unspecified organism Qualified Code(s): J18.9 - Pneumonia, unspecified organism Code(s): J18.9 - Pneumonia, unspecified organism Status: Acute Assessment and Plan: Chest x-ray revealing a airspace opacities at the lung bases consistent with atelectasis versus pneumonia. Blunting of the costophrenic angles consistent with scarring versus tiny pleural effusions. Patient started on Levaquin for pneumonia coverage. Sputum culture ordered (4) Sinus tachycardia: Code(s): R00.0 - Tachycardia, unspecified Status: Acute Assessment and Plan: Likely due to pericardial effusion. Continue to monitor. (5) Chronic obstructive pulmonary disease: Qualifiers: COPD type: COPD with acute lower respiratory infection Qualified Code(s): J44.0 - Chronic obstructive pulmonary disease with (acute) lower respiratory infection Code(s): J44.9 - Chronic obstructive pulmonary disease, unspecified Status: Acute Assessment and Plan: He does not appear to have a COPD exacerbation will continue with his maintenance inhaler and rescue inhaler as needed. (6) Hypertension: Qualifiers: Hypertension type: unspecified Qualified Code(s): I10 - Essential (primary) hypertension Code(s): I10 - Essential (primary) hypertension Status: Acute Assessment and Plan: Blood pressures have been running on the low side of normal and his antihypertensives will be reviewed and resumed as appropriate. Plan The rest of his home medications will be reviewed and resumed as appropriate. Subjective Date/time seen: 09/13/22 13:30 Interval history: Patient sitting up relaxing in bed. Patient admitted for pericardial effusion. Per demolitionist's he is worried for metastatic disease due to patient's 52 year history of smoking. Plan to order CT of the chest to inspect for malignancy. Patient having shortness of breath with activity but comfortable at rest. Review of Systems Review of Systems: All systems reviewed & are unremarkable except as noted in HPI and below Exam Narrative: GENERAL: Comfortable, no acute distress HENMT: moist mucous membranes EYES: EOM intact b/l NECK: no lymphadenopathy RESPIRATORY: distant heart sounds CARDIO: distant heart sounds GI: soft, nontender, bowel sounds present SKIN: no rashes EXTREMITIES: no edema, redness or tenderness Objective Data Vital Signs Vital Signs: Vital Signs - 24 hr 09/12/22 15:04 09/12/22 16:00 09/12/22 16:16 Temperature 97.5 F L Pulse Rate 110 H 123 H Respiratory Rate 17 Blood Pressure 107/81 Pulse Oximetry 100 94 Oxygen Delivery Room Air 09/12/22 22:00 09/12/22 20:25 09/13/22 00:00 Temperature 99.1 F P
[2022-09-13] MEDS: ALBUTEROL SULFATE (*SP) INHALER 2 PUFF INHALATION (16:54)
[2022-09-13] MEDS: UMECLIDINIUM/VILANTEROL 62.5-25 MCG ELLIPTA 1 PUFF INHALATION (17:04)
[2022-09-13] MEDS: levoFLOXacin 750 MG/D5W 150 ML 750 MG/150 ML BAG 100 MG IVPB (17:30)
[2022-09-13] MEDS: LORazepam (*CRX) 1 MG TABLET PO (21:44)
[2022-09-13] MEDS: ACETAMINOPHEN 325 MG TABLET 650 MG PO (21:44)
[2022-09-14] VITALS (14 sets, daily range): BP systolic 91–122; BP diastolic 59–76; PULSE 90–118; RESP 18–20; TEMP 36.1–36.5; O2SAT 95–100
[2022-09-14 06:12] LABS: Basophils Absolute Auto 0.1 K/mm3 (0.0-0.1); Basophils Percent Auto 0.8 % (0.2-1.2); Eosinophils Absolute Auto 0.7 K/mm3 (0-0.3); Eosinophils Percent Auto 7.5 % (0-4.4); Hematocrit 38.9 % (42.0-52.0); Hemoglobin 12.3 g/dL (14.0-18.0); Immature Granulocyte Absolute 0.03 K/mm3 (0.00-0.031); Immature Granulocyte Percent A 0.3 % (0-0.5); Lymphocytes Absolute Auto 1.82 K/mm3 (0.9-3.2); Lymphocytes Percent Auto 20.6 % (18.3-44.2); Mean Corpuscular HGB Conc 31.6 g/dl (32-36); Mean Corpuscular Hemoglobin 29.6 pg (26-34); Mean Corpuscular Volume 93.5 fl (80-100); Mean Platelet Volume 9.9 fl (7.4-10.4); Neutrophils Absolute Auto 5.3 K/mm3 (1.3-6.7); Neutrophils Percent Auto 59.8 % (45.5-73.1); Platelet Count Result 261 k/mm3 (150-375); Red Blood Count 4.16 M/mm3 (4.6-6.20); Red Cell Distribution Width 13.2 % (11.5-14.5); White Blood Count 8.9 K/mm3 (4.5-10.0)
[2022-09-14 06:24] LABS: Alanine Aminotransferase 98 U/L (6-50); Albumin Level 3.3 g/dL (3.5-5.1); Alkaline Phosphatase 80 U/L (38-126); Anion Gap 5 mmol/L (8-16); Aspartate Amino Transferase 87 U/L (17-59); Bilirubin,Total 0.5 mg/dL (0.2-1.3); Blood Urea Nitrogen 13 mg/dL (9-20); Calcium 8.1 mg/dL (8.4-10.2); Carbon Dioxide 30 mmol/L (22-30); Chloride 102 mmol/L (98-107); Estimated CRCL calculation 77 ml/min; Estimated Glomerular Filt Rate > 60; Glucose 95 mg/dL (65-110); Potassium 3.9 mmol/L (3.4-5.0); Sodium 137 mmol/L (137-145)
[2022-09-14] MEDS: UMECLIDINIUM/VILANTEROL 62.5-25 MCG ELLIPTA 1 PUFF INHALATION (07:40)
[2022-09-14] MEDS: METOPROLOL TARTRATE 50 MG TAB PO ×2 (08:27→20:40)
[2022-09-14] MEDS: guaiFENesin 12 HR 600 MG TABCR PO ×2 (08:27→20:40)
[2022-09-14] MEDS: ATORVASTATIN 40 MG TABLET 80 MG PO (08:28)
[2022-09-14] MEDS: FUROSEMIDE 20 MG TABLET PO (08:28)
[2022-09-14] MEDS: DOCUSATE SODIUM 100 MG CAPSULE PO (08:30)
--- NOTE | 2022-09-14 10:22 | PM.PNCARD ---
Progress Note: A&P Assessment and Plan (1) Pericardial effusion: Code(s): I31.39 - Other pericardial effusion (noninflammatory) Status: Acute Assessment and Plan: CT of the chest also confirms large pericardial effusion. Which is new from 2 months ago. He is tachycardic but shortness of breath has improved. At minimum, he will need a close in time repeat echocardiogram yet and luckily to assess for progression of the pericardial effusion. Certainly an argument could be made for a pericardiocentesis or pericardial window for both diagnostic and therapeutic purposes given the fact he did present to the hospital with progressively worsening shortness of breath, remains tachycardic and borderline hypotension. His no evidence of diastolic and or systolic congestive heart failure by echocardiography. Plan will be to repeat limited echocardiogram on Friday (2) Shortness of breath: Code(s): R06.02 - Shortness of breath Status: Acute Assessment and Plan: Continue observation today. Subjective Date/time seen: 09/14/22 10:22 Interval history: Patient sitting up relaxing in bed. Patient admitted for pericardial effusion. Per silk weaver's he is worried for metastatic disease due to patient's 52 year history of smoking. Plan to order CT of the chest to inspect for malignancy. Patient having shortness of breath with activity but comfortable at rest. Review of Systems Constitutional: Constitutional: Reports no additional constitutional complaints Eyes: Eyes: Reports no additional eye complaints ENT: Reports system reviewed and no additional complaints, except as documented Cardiovascular: Cardiovascular: Reports as per HPI and Reports dyspnea on exertion Respiratory: Respiratory: Reports dyspnea on exertion Gastrointestinal: Gastrointestinal: Reports no additional gastrointestinal complaints Genitourinary: Genitourinary: Reports no additional male genitourinary complaints Musculoskeletal: Musculoskeletal: Reports myalgias Integumentary/Breasts: Skin/Breast: Reports system reviewed and no additional complaints, except as docu Neurologic: Reports system reviewed and no additional complaints, except as documented Endocrine: Endocrine: Reports no additional endocrine complaints Hematologic/Lymphatic: Hematologic/Lymphatic: Reports no additional hematologic/lymphatic complaints Exam Const: General: comfortable and no acute distress Other: Pleasant well-developed well-nourished white male appearing about his stated age in no distress at this time watching television when I entered the room to see him HENMT: Mouth: Yes moist mucous membranes Eyes: Sclera: sclerae normal Neck: Neck: supple and no JVD Other: I do not detect any JVD at rest nor with inspiration Resp: Effort & Inspection: normal respiratory effort Other: breath sounds are somewhat diminished at the right base Cardio: Rate: regular rate Rhythm: regular rhythm Other: no murmur no gallop no rub PMI is difficult to palpate GI: Auscultation: normal bowel sounds Skin: General skin exam: normal color Neuro: Other: alert and oriented x3 Extrem: Other: good perfusion, no edema Objective Data Vital Signs Vital Signs: Vital Signs - 24 hr 09/13/22 12:00 09/13/22 14:00 09/13/22 14:22 Temperature 36.5 C 36.5 C Pulse Rate 88 90 93 Respiratory Rate 16 16 Blood Pressure 100/62 93/61 L Pulse Oximetry 95 95 Oxygen Delivery 09/13/22 14:23 09/13/22 16:00 09/13/22 16:56 Temperature 36.5 C Pulse Rate 86 112 H 116 H Respiratory Rate 16 20 Blood Pressure 100/62 Pulse Oximetry 98 Oxygen Delivery 09/13/22 20:00 09/13/22 20:00 09/13/22 20:00 Temperature 36.4 C 36.4 C Pulse Rate 119 H 119 H 123 H Respiratory Rate 16 18 Blood Pressure 100/66 96/73 L Pulse Oximetry 96 96 Oxygen Delivery 09/13/22 20:00 09/14/22 00:00 09/14/22 04:00 Te
--- NOTE | 2022-09-14 11:17 | PM.IMPN ---
Progress Note: A&P Assessment and Plan (1) Pericardial effusion: Code(s): I31.39 - Other pericardial effusion (noninflammatory) Status: Acute Assessment and Plan: The patient presented to the emergency department for evaluation of shortness of breath as per HPI. Labs, imaging, EKG, and all reports were personally reviewed. In addition to shortness of breath on exertion he has also been experiencing some mid chest tightness. Echocardiogram showed a large pericardial effusion; no clear evidence to suggest tamponade. He received a dose of Lasix in the ED for suspected CHF though will hold on further IV diuresis for now as he appears clinically compensated. Cardiology has been consulted and their input is greatly appreciated. Aspirin has been placed on hold in case he requires pericardiocentesis. ESR and CRP elevated CT chest revealing large pericardial effusion, no signs of malignancy noted Per Cardiology, will repeat echocardiogram Friday (2) Shortness of breath: Code(s): R06.02 - Shortness of breath Status: Acute Assessment and Plan: Likely due to pericardial effusion. (3) Pneumonia: Qualifiers: Laterality: left Lung location: lower lobe of lung Pneumonia type: due to unspecified organism Qualified Code(s): J18.9 - Pneumonia, unspecified organism Code(s): J18.9 - Pneumonia, unspecified organism Status: Acute Assessment and Plan: Chest x-ray revealing a airspace opacities at the lung bases consistent with atelectasis versus pneumonia. Blunting of the costophrenic angles consistent with scarring versus tiny pleural effusions. Patient started on Levaquin for pneumonia coverage. Sputum culture negative (4) Sinus tachycardia: Code(s): R00.0 - Tachycardia, unspecified Status: Acute Assessment and Plan: Likely due to pericardial effusion. Continue to monitor. (5) Chronic obstructive pulmonary disease: Qualifiers: COPD type: COPD with acute lower respiratory infection Qualified Code(s): J44.0 - Chronic obstructive pulmonary disease with (acute) lower respiratory infection Code(s): J44.9 - Chronic obstructive pulmonary disease, unspecified Status: Acute Assessment and Plan: He does not appear to have a COPD exacerbation will continue with his maintenance inhaler and rescue inhaler as needed. (6) Hypertension: Qualifiers: Hypertension type: unspecified Qualified Code(s): I10 - Essential (primary) hypertension Code(s): I10 - Essential (primary) hypertension Status: Acute Assessment and Plan: Blood pressures have been running on the low side of normal and his antihypertensives will be reviewed and resumed as appropriate. Plan The rest of his home medications will be reviewed and resumed as appropriate. Subjective Date/time seen: 09/14/22 11:17 Interval history: Patient doing well today. He states that his shortness of breath has much improved and he is able to walk about his room. Explained him that we did not see any signs of malignancy on chest x-ray. Cardiology wanting to have repeat echocardiogram performed Friday. Review of Systems Review of Systems: All systems reviewed & are unremarkable except as noted in HPI and below Exam Narrative: GENERAL: Comfortable, no acute distress HENMT: moist mucous membranes EYES: EOM intact b/l NECK: no lymphadenopathy RESPIRATORY: distant breath sounds CARDIO: distant heart sounds , rate controlled GI: soft, nontender, bowel sounds present SKIN: no rashes EXTREMITIES: no edema, redness or tenderness Objective Data Vital Signs Vital Signs: Vital Signs - 24 hr 09/13/22 12:00 09/13/22 14:00 09/13/22 14:22 Temperature 97.7 F 97.7 F Pulse Rate 88 90 93 Respiratory Rate 16 16 Blood Pressure 100/62 93/61 L Pulse Oximetry 95 95 Oxygen Delivery 09/13/22 14:23 09/13/22 16:00 09/13/22 16:
[2022-09-14] MEDS: levoFLOXacin 750 MG/D5W 150 ML 750 MG/150 ML BAG 100 MG IVPB (17:24)
[2022-09-14] MEDS: LORazepam (*CRX) 1 MG TABLET PO (20:41)
[2022-09-14] MEDS: ACETAMINOPHEN 325 MG TABLET 650 MG PO (20:41)
[2022-09-15] VITALS (16 sets, daily range): BP systolic 90–140; BP diastolic 57–73; PULSE 74–114; RESP 16–20; TEMP 35.9–36.6; O2SAT 95–100
[2022-09-15 07:13] LABS: Alanine Aminotransferase 95 U/L (6-50); Albumin Level 3.2 g/dL (3.5-5.1); Alkaline Phosphatase 83 U/L (38-126); Anion Gap 7 mmol/L (8-16); Aspartate Amino Transferase 76 U/L (17-59); Bilirubin,Total 0.4 mg/dL (0.2-1.3); Blood Urea Nitrogen 14 mg/dL (9-20); Calcium 8.3 mg/dL (8.4-10.2); Carbon Dioxide 28 mmol/L (22-30); Chloride 103 mmol/L (98-107); Estimated CRCL calculation 89 ml/min; Estimated Glomerular Filt Rate > 60; Glucose 91 mg/dL (65-110); Potassium 3.8 mmol/L (3.4-5.0); Sodium 138 mmol/L (137-145)
[2022-09-15 07:15] LABS: Hematocrit 39.2 % (42.0-52.0); Hemoglobin 12.4 g/dL (14.0-18.0); Mean Corpuscular HGB Conc 31.6 g/dl (32-36); Mean Corpuscular Hemoglobin 29.8 pg (26-34); Mean Corpuscular Volume 94.2 fl (80-100); Mean Platelet Volume 9.9 fl (7.4-10.4); Platelet Count Result 277 k/mm3 (150-375); Red Blood Count 4.16 M/mm3 (4.6-6.20); Red Cell Distribution Width 13.3 % (11.5-14.5); White Blood Count 7.8 K/mm3 (4.5-10.0)
[2022-09-15] MEDS: guaiFENesin 12 HR 600 MG TABCR PO ×2 (08:22→20:26)
[2022-09-15] MEDS: METOPROLOL TARTRATE 50 MG TAB PO ×2 (08:22→20:26)
[2022-09-15] MEDS: ATORVASTATIN 40 MG TABLET 80 MG PO (08:22)
[2022-09-15] MEDS: FUROSEMIDE 20 MG TABLET PO (08:22)
[2022-09-15] MEDS: DOCUSATE SODIUM 100 MG CAPSULE PO (08:23)
[2022-09-15] MEDS: UMECLIDINIUM/VILANTEROL 62.5-25 MCG ELLIPTA 1 PUFF INHALATION (09:10)
--- NOTE | 2022-09-15 10:18 | PM.PNCARD ---
Progress Note: A&P Assessment and Plan (1) Pericardial effusion: Code(s): I31.39 - Other pericardial effusion (noninflammatory) Status: Acute Assessment and Plan: CT of the chest also confirms large pericardial effusion. Which is new from 2 months ago. He is tachycardic but shortness of breath has improved. Will repeat a limited echo tomorrow for evaluation of his pericardial effusion. Certainly an argument could be made for a pericardiocentesis or pericardial window for both diagnostic and therapeutic purposes given the fact he did present to the hospital with progressively worsening shortness of breath, remains tachycardic and borderline hypotension and this is a new effusion without clear explanation. His no evidence of diastolic and or systolic congestive heart failure by echocardiography. Will order a limited echo for tomorrow (2) Shortness of breath: Code(s): R06.02 - Shortness of breath Status: Acute Assessment and Plan: Continue observation today. Subjective Date/time seen: 09/15/22 10:18 Interval history: 72-year-old with pericardial effusion. Date of service 09/12/2022: No chest pain or shortness of breath. Still tachycardic. Review of Systems Constitutional: Constitutional: Reports no additional constitutional complaints Eyes: Eyes: Reports no additional eye complaints ENT: Reports system reviewed and no additional complaints, except as documented Cardiovascular: Cardiovascular: Reports as per HPI and Reports dyspnea on exertion Respiratory: Respiratory: Reports dyspnea on exertion Gastrointestinal: Gastrointestinal: Reports no additional gastrointestinal complaints Genitourinary: Genitourinary: Reports no additional male genitourinary complaints Musculoskeletal: Musculoskeletal: Reports myalgias Integumentary/Breasts: Skin/Breast: Reports system reviewed and no additional complaints, except as docu Neurologic: Reports system reviewed and no additional complaints, except as documented Endocrine: Endocrine: Reports no additional endocrine complaints Hematologic/Lymphatic: Hematologic/Lymphatic: Reports no additional hematologic/lymphatic complaints Exam Const: General: comfortable and no acute distress Other: Pleasant well-developed well-nourished white male appearing about his stated age in no distress at this time watching television when I entered the room to see him HENMT: Mouth: Yes moist mucous membranes Eyes: Sclera: sclerae normal Neck: Neck: supple and no JVD Other: I do not detect any JVD at rest nor with inspiration Resp: Effort & Inspection: normal respiratory effort Other: breath sounds are somewhat diminished at the right base Cardio: Rate: regular rate Rhythm: regular rhythm Other: no murmur no gallop no rub PMI is difficult to palpate GI: Auscultation: normal bowel sounds Skin: General skin exam: normal color Neuro: Other: alert and oriented x3 Extrem: Other: good perfusion, no edema Objective Data Vital Signs Vital Signs: Vital Signs - 24 hr 09/14/22 14:00 09/14/22 12:00 09/14/22 16:00 Temperature 36.1 C L Pulse Rate 102 H 112 H 110 H Respiratory Rate 19 Blood Pressure 92/59 L Pulse Oximetry 98 Oxygen Delivery 09/14/22 21:27 09/14/22 20:00 09/14/22 22:00 Temperature 36.5 C Pulse Rate 114 H 112 H Respiratory Rate 18 Blood Pressure 122/68 Pulse Oximetry 95 97 Oxygen Delivery Room Air 09/15/22 00:00 09/15/22 04:00 09/14/22 20:00 Temperature 35.9 C L Pulse Rate 91 74 104 H Respiratory Rate 16 Blood Pressure 100/62 Pulse Oximetry 98 Oxygen Delivery 09/15/22 06:00 09/15/22 06:03 09/15/22 06:07 Temperature 35.9 C L Pulse Rate 104 H Respiratory Rate 16 Blood Pressure 100/62 96/65 L 90/59 L Pulse Oximetry 98 Oxygen Delivery 09/15/22 08:22 09/15/22 08:25 09/15/22 08:01 Temperature Pulse Rate 95
--- NOTE | 2022-09-15 11:27 | PM.IMPN ---
Progress Note: A&P Assessment and Plan (1) Pericardial effusion: Code(s): I31.39 - Other pericardial effusion (noninflammatory) Status: Acute Assessment and Plan: The patient presented to the emergency department for evaluation of shortness of breath as per HPI. Labs, imaging, EKG, and all reports were personally reviewed. In addition to shortness of breath on exertion he has also been experiencing some mid chest tightness. Echocardiogram showed a large pericardial effusion; no clear evidence to suggest tamponade. He received a dose of Lasix in the ED for suspected CHF though will hold on further IV diuresis for now as he appears clinically compensated. Cardiology has been consulted and their input is greatly appreciated. Aspirin has been placed on hold in case he requires pericardiocentesis. ESR and CRP elevated CT chest revealing large pericardial effusion, no signs of malignancy noted Per Cardiology, will repeat echocardiogram Tomorrow (2) Shortness of breath: Code(s): R06.02 - Shortness of breath Status: Acute Assessment and Plan: Likely due to pericardial effusion. (3) Pneumonia: Qualifiers: Laterality: left Lung location: lower lobe of lung Pneumonia type: due to unspecified organism Qualified Code(s): J18.9 - Pneumonia, unspecified organism Code(s): J18.9 - Pneumonia, unspecified organism Status: Acute Assessment and Plan: Chest x-ray revealing a airspace opacities at the lung bases consistent with atelectasis versus pneumonia. Blunting of the costophrenic angles consistent with scarring versus tiny pleural effusions. Levaquin transition to p.o. Sputum culture negative (4) Sinus tachycardia: Code(s): R00.0 - Tachycardia, unspecified Status: Acute Assessment and Plan: Likely due to pericardial effusion. Continue to monitor. (5) Chronic obstructive pulmonary disease: Qualifiers: COPD type: COPD with acute lower respiratory infection Qualified Code(s): J44.0 - Chronic obstructive pulmonary disease with (acute) lower respiratory infection Code(s): J44.9 - Chronic obstructive pulmonary disease, unspecified Status: Acute Assessment and Plan: He does not appear to have a COPD exacerbation will continue with his maintenance inhaler and rescue inhaler as needed. (6) Hypertension: Qualifiers: Hypertension type: unspecified Qualified Code(s): I10 - Essential (primary) hypertension Code(s): I10 - Essential (primary) hypertension Status: Acute Assessment and Plan: Blood pressures have been running on the low side of normal and his antihypertensives will be reviewed and resumed as appropriate. Plan The rest of his home medications will be reviewed and resumed as appropriate. Subjective Date/time seen: 09/15/22 11:27 Interval history: patient symptoms improving. Denies shortness of breath with ambulation, no chest pain. Continues to have tachycardia. No supplemental oxygen needed at this time. Exam Narrative: GENERAL: Comfortable, no acute distress HENMT: moist mucous membranes EYES: EOM intact b/l NECK: no lymphadenopathy RESPIRATORY: distant breath sounds CARDIO: distant heart sounds , rate controlled GI: soft, nontender, bowel sounds present SKIN: no rashes EXTREMITIES: no edema, redness or tenderness Objective Data Vital Signs Vital Signs: Vital Signs - 24 hr 09/14/22 14:00 09/14/22 12:00 09/14/22 16:00 Temperature 97 F L Pulse Rate 102 H 112 H 110 H Respiratory Rate 19 Blood Pressure 92/59 L Pulse Oximetry 98 Oxygen Delivery 09/14/22 21:27 09/14/22 20:00 09/14/22 22:00 Temperature 97.7 F Pulse Rate 114 H 112 H Respiratory Rate 18 Blood Pressure 122/68 Pulse Oximetry 95 97 Oxygen Delivery Room Air 09/15/22 00:00 09/15/22 04:00 09/14/22 20:00 Temperature 96.7 F L Pulse Rate 91 74 10
--- NOTE | 2022-09-15 11:52 | PC.NURSE ---
Addendum entered by Lolis Whitman RN 09/15/22 17:45: Pt was switched to PO levaquin. Pt tolerating well. Pt denies any pain and expresses no needs at this time. Will continue to monitor pt. Original Note: Pt is A&O4 male who participates and contributes in plan of care. Pt states that he is in no pain at this time. Pt is up in chair. Pt denies any needs at this time. Pt is compliant with care. Will continue to monitor pt.
[2022-09-15] MEDS: levoFLOXacin 750 MG TABLET PO (17:00)
[2022-09-15] MEDS: LORazepam (*CRX) 1 MG TABLET PO (20:26)
[2022-09-15] MEDS: ACETAMINOPHEN 325 MG TABLET 650 MG PO (20:30)
[2022-09-16] VITALS (9 sets, daily range): BP systolic 82–103; BP diastolic 49–67; PULSE 62–108; RESP 17–20; TEMP 36.6; O2SAT 96–99
--- NOTE | 2022-09-16 | ECHOL_ITS ---
Patient Info Name: Dov Marcial Age: 72 years : 1950 Gender: Male Ht: 68 in Wt: 194 lbs BSA: 2.08 m2 HR: 110 bpm BP: 82 / 49 mmHg Heart Rhythm: Sinus Rhythm Technical Quality: Good Exam Date: 09/16/2022 10:19 AM Exam Location: [facility] Pulmonary Exam Room: [facility] Patient Status: Inpatient Admit Date: 09/14/2022 Staff Ordering Physician: Omari Hoffman MD Test Worker: Amara Hernandez RCS Attending Provider: Isaiah Matute MD Referring Physician: Dalton WINTERS; Exam Type: CA echo limited Study Info Indications - EVAL PERICARDIAL EFFUSION Limited two-dimensional transthoracic echocardiogram is performed. Summary 1. Left ventricular chamber dimension is normal. 2. Left ventricular systolic function is normal, estimated at >70%. 3. Normal inferior vena cava with <50% collapse upon inspiration consistent with normal right atrial pressure, 5 mmHg. 4. There is large circumferential pericardial effusion on average 1.6-2.0cm. Fibrinous material noted within the pericardial space. No evidence for tamponade physiology by mitral or tricuspid inflow velocity variation. Left Ventricle Left ventricular chamber dimension is normal. Left ventricular systolic function is normal, estimated at >70%. Mitral Valve The mitral valve has thickened leaflets. The mitral valve annulus is moderately calcified. Pericardium/Pleural The pericardium appears thickened pericardium. There is large circumferential pericardial effusion on average 1.6-2.0cm. Fibrinous material noted within the pericardial space. No evidence for tamponade physiology by mitral or tricuspid inflow velocity variation. Inferior Vena Cava Normal inferior vena cava with <50% collapse upon inspiration consistent with normal right atrial pressure, 5 mmHg. Tricuspid Valve Name Value Normal Estimated PAP/RSVP RA Pressure 5 mmHg <=5 Report Signatures
[2022-09-16 06:44] LABS: Hematocrit 38.1 % (42.0-52.0); Hemoglobin 12.1 g/dL (14.0-18.0); Mean Corpuscular HGB Conc 31.8 g/dl (32-36); Mean Corpuscular Hemoglobin 29.9 pg (26-34); Mean Corpuscular Volume 94.1 fl (80-100); Mean Platelet Volume 9.9 fl (7.4-10.4); Platelet Count Result 298 k/mm3 (150-375); Red Blood Count 4.05 M/mm3 (4.6-6.20); Red Cell Distribution Width 13.1 % (11.5-14.5); White Blood Count 7.5 K/mm3 (4.5-10.0)
[2022-09-16 06:53] LABS: Anion Gap 2 mmol/L (8-16); Blood Urea Nitrogen 12 mg/dL (9-20); CRP 5.2 mg/dL (<1.0); Calcium 8.4 mg/dL (8.4-10.2); Carbon Dioxide 32 mmol/L (22-30); Chloride 104 mmol/L (98-107); Estimated CRCL calculation 77 ml/min; Estimated Glomerular Filt Rate > 60; Glucose 92 mg/dL (65-110); Potassium 4.2 mmol/L (3.4-5.0); Sodium 138 mmol/L (137-145)
[2022-09-16] MEDS: UMECLIDINIUM/VILANTEROL 62.5-25 MCG ELLIPTA 1 PUFF INHALATION (08:14)
[2022-09-16] MEDS: FUROSEMIDE 20 MG TABLET PO (08:52)
[2022-09-16] MEDS: DOCUSATE SODIUM 100 MG CAPSULE PO (08:52)
[2022-09-16] MEDS: guaiFENesin 12 HR 600 MG TABCR PO (08:52)
[2022-09-16] MEDS: ATORVASTATIN 40 MG TABLET 80 MG PO (08:52)
--- NOTE | 2022-09-16 11:15 | PCCCNOTE ---
On 09/16/22, the student, [Roz Sparrow ], provided care and completed [facility] documentation on this patient. I have reviewed the student's documentation and agree with the findings.
--- NOTE | 2022-09-16 12:15 | PM.PNCARD ---
Progress Note: A&P Assessment and Plan (1) Pericardial effusion: Code(s): I31.39 - Other pericardial effusion (noninflammatory) Status: Acute Plan Patient has a moderate-size circumferential pericardial effusion in my opinion despite the radiologist's comment that it is a large effusion on CT. In any event the patient is not hemodynamically unstable, there is no evidence of tamponade physiology. This effusion should be drained but it is safer for him to drain it for both diagnostic and therapeutic reasons with subxiphoid cervical drainage by a thoracic surgeon. I will see that we contact thoracic surgery at [facility] and his facilitate making sure he has an appointment for this consultation and procedure. He can be discharged to home per the discretion of the primary team. Lito Ritchie MD [facility] Subjective Date/time seen: Date of service:09/16/22 12:15 Interval history: 72-year-old with pericardial effusion. Date of service 09/12/2022: No chest pain or shortness of breath. Still tachycardic. Date of service 09/16/2022: He is asymptomatic this morning and feels well. No longer having any shortness of breath. Exam Const: General: comfortable and no acute distress Other: Pleasant well-developed well-nourished white male appearing about his stated age in no distress at this time watching television when I entered the room to see him HENMT: Mouth: Yes moist mucous membranes Eyes: Sclera: sclerae normal Neck: Neck: supple and no JVD Other: I do not detect any JVD at rest nor with inspiration Resp: Effort & Inspection: normal respiratory effort Other: breath sounds are somewhat diminished at the right base Cardio: Rate: regular rate Rhythm: regular rhythm Other: no murmur no gallop no rub PMI is difficult to palpate GI: Auscultation: normal bowel sounds Skin: General skin exam: normal color Neuro: Other: alert and oriented x3 Extrem: Other: good perfusion, no edema Objective Data Vital Signs Vital Signs: Vital Signs - 24 hr 09/15/22 14:39 09/15/22 14:41 09/15/22 14:00 Temperature 36.6 C 36.4 C 36.2 C L Pulse Rate 104 H 102 H 98 Respiratory Rate 20 20 20 Blood Pressure 108/64 93/57 L 99/64 L Pulse Oximetry 97 100 95 Oxygen Delivery 09/15/22 16:02 09/15/22 20:26 09/15/22 22:00 Temperature 36.2 C L Pulse Rate 109 H 80 110 H Respiratory Rate 18 Blood Pressure 140/73 Pulse Oximetry 100 Oxygen Delivery 09/15/22 20:00 09/15/22 20:00 09/16/22 00:00 Temperature Pulse Rate 114 H 62 Respiratory Rate Blood Pressure Pulse Oximetry Oxygen Delivery Room Air 09/16/22 04:00 09/16/22 06:00 09/16/22 06:15 Temperature 36.6 C Pulse Rate 79 75 Respiratory Rate 17 Blood Pressure 101/66 103/67 Pulse Oximetry 99 Oxygen Delivery 09/16/22 06:20 09/16/22 06:25 09/16/22 08:14 Temperature Pulse Rate Respiratory Rate Blood Pressure 90/63 L 82/49 L Pulse Oximetry 96 Oxygen Delivery Room Air 09/16/22 08:14 Temperature Pulse Rate 84 Respiratory Rate 20 Blood Pressure Pulse Oximetry Oxygen Delivery Intake/Output Intake/Output: Intake & Output 09/13/22 09/14/22 09/15/22 09/16/22 23:59 23:59 23:59 23:59 Intake Total 3332 2687 3452 1700 Balance 3332 2687 3452 1700 Meds/Results Medications: Active Medications Generic Name Dose Route Start Last Admin Trade Name Freq PRN Reason Stop Dose Admin Acetaminophen 650 mg 09/12/22 22:04 09/15/22 20:30 Acetaminophen 325 Mg Tablet PO 650 mg Q6H PRN Administration Mild Pain (1-3) Or Fever Albuterol 2 puff 09/12/22 17:14 09/13/22 16:54 Albuterol Sulfate (*Sp) Inhaler INHALATION 2 puff QIDRT PRN Administration Shortness Of Breath Or Wheezing Atorvastatin Calcium 80 mg 09/13/22 09:00 09/16/22 08:52 Atorvastatin 40 Mg Tablet PO 80 mg DAILY JIMENEZ Admini
--- NOTE | 2022-09-16 12:26 | P.PNIM_ITS ---
Progress Note: A&P Assessment and Plan (1) Pericardial effusion: Code(s): I31.39 - Other pericardial effusion (noninflammatory) Status: Acute Assessment and Plan: The patient presented to the emergency department for evaluation of shortness of breath as per HPI. Labs, imaging, EKG, and all reports were personally reviewed. In addition to shortness of breath on exertion he has also been experiencing some mid chest tightness. * Echocardiogram showed a large pericardial effusion; no clear evidence to suggest tamponade. * He received a dose of Lasix in the ED for suspected CHF though will hold on further IV diuresis for now as he appears clinically compensated. * Cardiology has been consulted and their input is greatly appreciated. * Aspirin has been placed on hold in case he requires pericardiocentesis. * ESR and CRP elevated * CT chest revealing large pericardial effusion, no signs of malignancy noted * Per Cardiology, will repeat echocardiogram (2) Shortness of breath: Code(s): R06.02 - Shortness of breath Status: Resolved Assessment and Plan: Likely due to pericardial effusion. (3) Pneumonia: Qualifiers: Laterality: left Lung location: lower lobe of lung Pneumonia type: due to unspecified organism Qualified Code(s): J18.9 - Pneumonia, unspecified organism Code(s): J18.9 - Pneumonia, unspecified organism Status: Acute Assessment and Plan: Chest x-ray revealing a airspace opacities at the lung bases consistent with atelectasis versus pneumonia. Blunting of the costophrenic angles consistent with scarring versus tiny pleural effusions. * Levaquin transition to p.o. * Sputum culture negative (4) Sinus tachycardia: Code(s): R00.0 - Tachycardia, unspecified Status: Acute Assessment and Plan: Likely due to pericardial effusion. Continue to monitor. (5) Chronic obstructive pulmonary disease: Qualifiers: COPD type: COPD with acute lower respiratory infection Qualified Code(s): J44.0 - Chronic obstructive pulmonary disease with (acute) lower respiratory infection Code(s): J44.9 - Chronic obstructive pulmonary disease, unspecified Status: Acute Assessment and Plan: He does not appear to have a COPD exacerbation will continue with his maintenance inhaler and rescue inhaler as needed. (6) Hypertension: Qualifiers: Hypertension type: unspecified Qualified Code(s): I10 - Essential (primary) hypertension Code(s): I10 - Essential (primary) hypertension Status: Acute Assessment and Plan: Blood pressures have been running on the low side of normal and his antihypertensives will be reviewed and resumed as appropriate. Plan The rest of his home medications will be reviewed and resumed as appropriate. Subjective Date/time seen: 09/16/22 12:26 Exam 2 Narrative: GENERAL: Comfortable, no acute distress HENMT: moist mucous membranes EYES: EOM intact b/l NECK: no lymphadenopathy RESPIRATORY: distant breath sounds CARDIO: distant heart sounds , rate controlled GI: soft, nontender, bowel sounds present SKIN: no rashes EXTREMITIES: no edema, redness or tenderness Objective Data Vital Signs Vital Signs: Vital Signs - 24 hr 09/15/22 14:39 09/15/22 14:41 09/15/22 14:00 Temperature 97.9 F 97.6 F 97.1 F L Pulse Rate 104 H 102 H 98 Respiratory Rate 20 20 20 Blood Pressure 108/64 93/57 L 99
--- NOTE | 2022-09-16 12:27 | PM.DS ---
DS: Admitting Diagnosis Discharge Date 09/16/22 Admitting Diagnosis Pericardial effusion DS: Discharge Diagnosis Discharge Diagnosis (1) Pericardial effusion: Code(s): I31.39 - Other pericardial effusion (noninflammatory) Status: Acute Assessment and Plan: The patient presented to the emergency department for evaluation of shortness of breath as per HPI. Labs, imaging, EKG, and all reports were personally reviewed. In addition to shortness of breath on exertion he has also been experiencing some mid chest tightness. Echocardiogram showed a large pericardial effusion; no clear evidence to suggest tamponade. He received a dose of Lasix in the ED for suspected CHF though will hold on further IV diuresis for now as he appears clinically compensated. Cardiology has been consulted and their input is greatly appreciated. Aspirin has been placed on hold in case he requires pericardiocentesis. ESR and CRP elevated CT chest revealing large pericardial effusion, no signs of malignancy noted Per Cardiology, will repeat echocardiogram (2) Shortness of breath: Code(s): R06.02 - Shortness of breath Status: Resolved Assessment and Plan: Likely due to pericardial effusion. (3) Pneumonia: Qualifiers: Laterality: left Lung location: lower lobe of lung Pneumonia type: due to unspecified organism Qualified Code(s): J18.9 - Pneumonia, unspecified organism Code(s): J18.9 - Pneumonia, unspecified organism Status: Acute Assessment and Plan: Chest x-ray revealing a airspace opacities at the lung bases consistent with atelectasis versus pneumonia. Blunting of the costophrenic angles consistent with scarring versus tiny pleural effusions. Levaquin transition to p.o. Sputum culture negative (4) Sinus tachycardia: Code(s): R00.0 - Tachycardia, unspecified Status: Acute Assessment and Plan: Likely due to pericardial effusion. Continue to monitor. (5) Chronic obstructive pulmonary disease: Qualifiers: COPD type: COPD with acute lower respiratory infection Qualified Code(s): J44.0 - Chronic obstructive pulmonary disease with (acute) lower respiratory infection Code(s): J44.9 - Chronic obstructive pulmonary disease, unspecified Status: Acute Assessment and Plan: He does not appear to have a COPD exacerbation will continue with his maintenance inhaler and rescue inhaler as needed. (6) Hypertension: Qualifiers: Hypertension type: unspecified Qualified Code(s): I10 - Essential (primary) hypertension Code(s): I10 - Essential (primary) hypertension Status: Acute Assessment and Plan: Blood pressures have been running on the low side of normal and his antihypertensives will be reviewed and resumed as appropriate. Plan The rest of his home medications will be reviewed and resumed as appropriate. DS: Summary Hospital Course Hospital Course: This is a 72-year-old male with a history of hypertension, CAD status post stent many years ago and COPD with a 52 pack-year history that presented to the emergency room for evaluation of shortness of breath on 09/12/2022. Patient was experiencing shortness of breath with activity, tachycardia and mild midsternal chest pressure with activity. In the ED he was found to be tachycardic worse with walking. EKG showed sinus tachycardia and possible left atrial large mint, lower QRS voltage in the pericardial leads. Chest x-ray showed airspace opacities at the lung bases consistent with atelectasis versus pneumonia and blunting of the costophrenic angles. He was given 1 dose of IV Lasix. Echocardiogram revealing large pericardial effusion without evidence of tamponade physiology with appearance of thickened pericardium. Cardiology was consulted. Cardiology recommending CT of the chest to rule out malignancy due to patient being at high risk. CT of the chest show
== END 2022-09-16 14:02 | disposition home or self-care (01) | DRG 314 ==
LOC: ANHED 11:09 → ANH3MEDSUR 14:27
PROVIDERS: Physician Assistant; Admitting Provider Internal Medicine; Emergency Provider Emergency Medicine; Visit Provider Internal Medicine Critical Care Medicine
DX: I31.39 Other pericardial effusion (noninflammatory) (principal); J18.9 Pneumonia, unspecified organism; J44.0 Chronic obstructive pulmonary disease with (acute) lower respiratory infection; J98.11 Atelectasis; R00.0 Tachycardia, unspecified; E78.5 Hyperlipidemia, unspecified; J44.9 Chronic obstructive pulmonary disease, unspecified; I10 Essential (primary) hypertension; L40.9 Psoriasis, unspecified; G14 Postpolio syndrome; Z79.82 Long term (current) use of aspirin; Z87.891 Personal history of nicotine dependence; Z95.5 Presence of coronary angioplasty implant and graft
CPT/HCPCS: 36415; 71046; 71250; 80048; 80053; 83735; 83880; 84145; 84443; 84484; 85025; 85027; 85610; 85652; 85730; 86140; 87070; 87205; 93005; 93306; 93308; 94640; 96365; 96366; 96375; 99285; A9270; G0378; J1940; J1956